=== PATIENT | female | born 1955 | race Caucasian/White ===

== ENCOUNTER 2020-11-07 08:58 | Outpatient (REF) | payer MEDICARE, SELFPAY ==
--- NOTE | 2020-11-07 | PFT_ITS ---
Forced vital capacity is normal. FEV1 at the lower limit of normal but FEV1/FVC is moderately decreased. DIL89-30 moderately decreased. MVV is slightly decreased. Post bronchodilator therapy, there is no significant change. Total lung capacity and residual volume are slightly increased. Diffusion capacity normal. CONCLUSION: Mild to moderate degree of obstructive airway disorder. There is hyperinflation. No response to bronchodilator therapy. MD NIDHI Rascon/MODL / [id number]
--- NOTE | 2020-11-07 09:02 | CT_ITS ---
EXAMINATION: CT CHEST WITHOUT CONTRAST CLINICAL INFORMATION: Pulmonary nodules. COMPARISON: 05/08/2020 TECHNIQUE: Multidetector volumetric CT imaging of the chest was done. Axial MIP volume rendering provided. Sagittal and coronal reformatted images were obtained. This CT examination was performed using dose optimization techniques as appropriate, variously including the following: *Automated exposure control *Adjustment of mA and/or kV according to patient size (this includes techniques or standardized protocols for targeted exams where dose is matched to indication/reason for exam; i.e. extremities or head) *Use of iterative reconstruction technique DLP: 102 mGy-cm FINDINGS: LUNGS AND PLEURA: Azygos fissure of the right upper lobe. The multiple small calcified and noncalcified pulmonary and/or pleural-based nodules are stable in size and number compared to 05/08/2020. The largest noncalcified nodule is a 0.5 cm smoothly marginated pleural-based focus in the posterolateral right upper lobe (image 131, series 7). No suspicious lung nodule or mass. No pleural effusion. CARDIOVASCULAR: Cardiac chambers, pulmonary arteries and thoracic aorta are normal in size. No pericardial effusion. MEDIASTINUM AND LOWER NECK: The visualized portion of the thyroid gland is normal. The esophagus is unremarkable. No mediastinal mass. LYMPHATICS: No axillary or internal mammary lymphadenopathy. No pathologic sized hilar or mediastinal lymph nodes. UPPER ABDOMEN: Unremarkable. SKELETAL AND CHEST WALL: Mild, multilevel discovertebral degenerative change of the thoracic spine. No aggressive osseous lesions within the thorax. Stable 1.1 cm lobulated nodule in the upper outer quadrant of the left breast. Please refer to the ultrasound breast report from 05/16/2020. CT/CT chest wo con IMPRESSION: The small pulmonary and pleural-based nodules remain stable in size and number compared to 05/08/2020. Note that additional chest CT imaging follow-up is not required in a low-risk patient, and may be considered optional in another 12 months in a high risk patient.
== END 2020-11-07 08:59 | disposition home or self-care (01) ==
LOC: HO.CT 08:58
PROVIDERS: Visit Provider Internal Medicine Pulmonary Disease
DX: J45.20 Mild intermittent asthma, uncomplicated (principal); R91.8 Other nonspecific abnormal finding of lung field
CPT/HCPCS: 71250; 94060; 94727; 94729

== ENCOUNTER → 2020-11-27 10:01 | Outpatient (BNVA) | payer MEDICARE, SELFPAY | PROVIDERS: PCP Internal Medicine; Visit Provider Internal Medicine Pulmonary Disease | DX: Z13.89 Encounter for screening for other disorder (principal) | CPT/HCPCS: Q3014 ==

== ENCOUNTER 2020-12-09 09:05 | Outpatient (REF) | payer MEDICARE, SELFPAY ==
[2020-12-09 11:54] LABS: Alanine Aminotransferase 17 U/L (0-31); Alkaline Phosphatase 47 U/L (39-117); Anion Gap 11 (12-20); Aspartate Amino Transferase 21 U/L (5-31); Bilirubin Total 0.8 mg/dL (0.0-1.0); Blood Urea Nitrogen 27 mg/dL (9-16); Calcium 8.3 mg/dL (8.4-10.2); Carbon Dioxide 28 mmol/L (22-29); Chloride 108 mmol/L (96-108); Cholesterol 230 mg/dL; Estimated Glomerular Filt Rate > 60; Glucose Fasting 88 mg/dL (60-99); HDL Cholesterol 61 mg/dL; LDL Cholesterol Calculated 154 mg/dl; Potassium 4.3 mmol/l (3.3-5.1); Sodium 143 mmol/L (135-145); Total Protein 6.3 g/dL (6.5-8.0); Triglycerides 75 mg/dL
[2020-12-09 12:20] LABS: Vitamin D 25-OH Total 54.7 ng/mL (>30)
== END 2020-12-09 09:06 | disposition home or self-care (01) ==
LOC: HO.HMGCLDS 09:05
PROVIDERS: PCP Internal Medicine; Visit Provider Internal Medicine
DX: E78.5 Hyperlipidemia, unspecified (principal); Z78.0 Asymptomatic menopausal state
CPT/HCPCS: 36415; 80053; 80061; 82306

== ENCOUNTER 2021-03-19 08:21 | Outpatient (REF) | payer MEDICARE, SELFPAY ==
[2021-03-19 11:51] LABS: Alanine Aminotransferase 29 U/L (0-31); Aspartate Amino Transferase 36 U/L (5-31); Calcium 9.1 mg/dL (8.4-10.2); Cholesterol 205 mg/dL; HDL Cholesterol 59 mg/dL; LDL Cholesterol Calculated 126 mg/dl; Triglycerides 101 mg/dL
[2021-03-20 10:07] LABS: Calcium, Ionized 4.8 mg/dL (4.8-5.6)
== END 2021-03-19 08:22 | disposition home or self-care (01) ==
LOC: HO.HMGCLDS 08:21
PROVIDERS: PCP Internal Medicine; Visit Provider Internal Medicine
DX: E83.51 Hypocalcemia (principal); E78.5 Hyperlipidemia, unspecified
CPT/HCPCS: 36415; 80061; 82310; 82330; 84450; 84460

== ENCOUNTER 2021-05-27 09:50 | Outpatient (REF) | payer MEDICARE, SELFPAY ==
--- NOTE | ~2021-05-27 | XR_ITS ---
EXAMINATION: XR SINUSES CLINICAL INFORMATION: Sinusitis COMPARISON: None TECHNIQUE: 3 views of the sinuses were obtained. FINDINGS: There is normal aeration of bilateral paranasal sinuses and mastoid air cells. The bony sinus villatoro are intact. No air-fluid levels seen. XR/XR sinus min 3V IMPRESSION: Unremarkable sinus exam.
== END 2021-05-27 09:51 | disposition home or self-care (01) ==
LOC: HO.XRAY 09:50
PROVIDERS: PCP Internal Medicine; Visit Provider Otolaryngology
DX: J32.9 Chronic sinusitis, unspecified (principal)
CPT/HCPCS: 70220

== ENCOUNTER 2021-06-04 07:59 | Day surgery (SDC) | payer MEDICARE, SELFPAY ==
[2021-05-28 14:39] VITALS: BMI 23.0
--- NOTE | 2021-06-03 09:35 | P.CONAN_ITS ---
Documented by User: Arely Mcmanusney 06/03/21 09:36 HPI - Anesthesia Eval Consult details Narrative: 65yo F for Colonoscopy +ETOH PMFSH Active Problems Active Problems: All Active Problems (Updated 05/28/21 @ 14:33 by Mary Daly) Mild intermittent asthma (Acute) Environmental allergies (Acute) Pulmonary nodules (Acute) Hypocalcemia (Acute) Menopause (Acute) Dyslipidemia (Acute) Recurrent cold sores (Acute) Past Medical History Medical History (Updated 05/28/21 @ 14:33 by Mary Daly) Dyslipidemia Hypocalcemia Menopause Recurrent cold sores Seasonal allergies Sinus infection Family History Family History Father Coronary artery disease Hypertension Mother Colon cancer Dyslipidemia Asthma Maternal Uncle Colon cancer Maternal Grandmother Diabetes mellitus Surgical History Surgical History (Updated 05/28/21 @ 14:08 by Mary Daly) Hx of colonoscopy S/P correction of deviated nasal septum Status post laser ablation of incompetent vein Status post right breast lumpectomy Social History Social History Alcohol intake: current Alcohol intake frequency: a few times a month Patient Tobacco Use Status: Former Tobacco user Quit Date: Are you DNR?: No Advance Directives: No Advance Directives Information Provided: No Advance Directives on File: No Meds Allergies Allergy/AdvReac Type Severity Reaction Status Date / Time ciprofloxacin [Cipro] Allergy Unknown anaphylaxis Verified 06/04/21 08:25 atorvastatin AdvReac Unknown Muscle Pain Verified 06/04/21 08:25 simvastatin AdvReac Unknown Muscle Pain Verified 06/04/21 08:25 Home Medications Medication Instructions Recorded Confirmed Last Taken Type ascorbic acid (vitamin C) 1,000 mg 1 g PO ONCE tab 12/13/20 05/28/21 Unknown History tablet biotin 5,000 mcg disintegrating 10,000 mcg PO DAILY 12/13/20 05/28/21 Unknown History tablet cholecalciferol (vitamin D3) 50 50 mcg PO DAILY 12/13/20 05/28/21 Unknown History mcg (2,000 unit) capsule coenzyme Q10 100 mg capsule 100 mg PO DAILY 12/13/20 05/28/21 Unknown History ferrous sulfate 325 mg (65 mg 325 mg PO DAILY 12/13/20 06/04/21 05/28/21 History iron) tablet flu vacc (65yr ml IM ONCE 12/13/20 03/25/21 Unknown History up)-MF59C(PF) 60 mcg(15 mcgx4)/0.5 mL IM syringe krill oil 500 mg capsule 500 mg PO DAILY 12/13/20 05/28/21 Unknown History qrwzuezl-dgrvefd-ksvh-lutein tablet 1 tab PO DAILY 12/13/20 05/28/21 Unknown History pneumococcal 23-christopher ps vaccine 25 ml IM 12/13/20 03/25/21 Unknown History mcg/0.5 mL injection syringe cetirizine [Zyrtec] 10 mg PO DAILY 05/28/21 05/28/21 Unknown History fluticasone propionate [Flonase 1 spray INTRANASAL DAILY 05/28/21 05/28/21 Unknown History Allergy Relief] fluticasone propionate [Flovent 1 puff INHALATION BID PRN 05/28/21 05/28/21 Unknown History HFA] Exam Exam Date and Time: June 03, 2021 0935 Height,Weight and Vital Signs: Height 5 ft 1 in Weight 55.338 kg Narrative Narrative: PFT 10/2020 CONCLUSION: Mild to moderate degree of obstructive airway disorder. There is hyperinflation. No response to bronchodilator therapy. Assessment and Plan Assessment Anesthesia Assessment: Chart Reviewed Documented by User: Frances Rossi 06/04/21 08:51 [facility] Past Medical History Medical History (Updated 05/28/21 @ 14:33 by Mary Daly) Dyslipidemia Hypocalcemia Menopause Recurrent cold sores Seasonal allergies Sinus infection Family History Family History Father Coronary artery disease Hypertension Mother Colon cancer Dyslipidemia Asthma Maternal Uncle Colon cancer Maternal Grandmother Diabetes mellitus Surgical History Surgical History (Updated 05/28/21 @ 14:08 by Mary Daly) Hx of colonoscopy S/P correction of deviated nasal septum Status post laser ablation of incompetent vein Status post right breast lumpectomy Social History Social History Alcohol intake: current Alcohol intake frequency: a few times a month Patient Tobacco Use Status: Former Tobacco user Quit Date: Are you DNR?: No Advance Directives: No Advance Directives Information Provided: No Advance Directives on File: No Meds Allergies Allergy/AdvReac Type Severity Reaction Status Date / Time ciprofloxacin [Cipro] Allergy Unknown anaphylaxis Verified 06/04/21 08:25 atorvastatin AdvReac Unknown Muscle Pain Verified 06/04/21 08:25 simvastatin AdvReac Unknown Muscle Pain Verified 06/04/21 08:25 Home Medications Medication Instructions Recorded Confirmed Last Taken Type ascorbic acid (vitamin C) 1,000 mg 1 g PO ONCE tab 12/13/20 05/28/21 Unknown History tablet biotin 5,000 mcg disintegrating 10,000 mcg PO DAILY 12/13/20 05/28/21 Unknown History tablet cholecalciferol (vitamin D3) 50 50 mcg PO DAILY 12/13/20 05/28/21 Unknown History mcg (2,000 unit) capsule coenzyme Q10 100 mg capsule 100 mg PO DAILY 12/13/20 05/28/21 Unknown History ferrous sulfate 325 mg (65 mg 325 mg PO DAILY 12/13/20 06/04/21 05/28/21 History iron) tablet flu vacc (65yr ml IM ONCE 12/13/20 03/25/21 Unknown History up)-MF59C(PF) 60 mcg(15 mcgx4)/0.5 mL IM syringe krill oil 500 mg capsule 500 mg PO DAILY 12/13/20 05/28/21 Unknown History cykfjnzs-hakwzss-fvfr-lutein tablet 1 tab PO DAILY 12/13/20 05/28/21 Unknown History pneumococcal 23-christopher ps vaccine 25 ml IM 12/13/20 03/25/21 Unknown History mcg/0.5 mL injection syringe cetirizine [Zyrtec] 10 mg PO DAILY 05/28/21 05/28/21 Unknown History fluticasone propionate [Flonase 1 spray INTRANASAL DAILY 05/28/21 05/28/21 Unknown History Allergy Relief] fluticasone propionate [Flovent 1 puff INHALATION BID PRN 05/28/21 05/28/21 Unknown History HFA] Exam Airway Mallampati Class: II TM Dist: >3cm Neck ROM: Full Heart: rrr Lungs: cta Assessment and Plan Assessment Anesthesia Assessment: Anesthesia Plan Discussed and Chart Reviewed Final Anesthetic Review NPO: Yes ASA Class: II Final Preanesthetic Review: No Changes in Pt Med Stat and Consent Obtained/Reviewed Patient Risk: Intermediate Procedure Risk: Intermediate Anesthetic Plan Anesthetic Plan: MAC: Disposition: Standard PACU
[2021-06-04 08:53] VITALS: BP 115/73; PULSE 66; RESP 16; TEMP 36.7; O2SAT 99
[2021-06-04] MEDS: Lactated Ringers 1,000 ML 100 ML IVCONT (09:02)
--- NOTE | 2021-06-04 10:33 | P.BOP_ITS ---
Brief Operative Note Date of Service: 06/04/21 Pre-op diagnosis: Screening Post-op diagnosis: other (Colon polyp) Procedure: Colonoscopy to the cecum and TI with bx/removal of polyp Surgeon: Guillermo Mcduffie Anesthesia: MAC Was an Singing Messenger used for this Procedure?: No Estimated blood loss (mL): 3.0 Pathology: other (A. Proximal AC polyp) Condition: stable Disposition: PACU
[2021-06-04 10:34] VITALS: BP 77/46; PULSE 56; RESP 16; TEMP 36.5; O2SAT 95
[2021-06-04 10:49] VITALS: BP 100/58; PULSE 58; RESP 17; TEMP 36.5; O2SAT 100
--- NOTE | 2021-06-04 10:53 | OP_ITS ---
SURGEON: Guillermo Mcduffie MD INDICATIONS: The patient presents for evaluation of personal history of tubular adenomas of the colon, family history of colon cancer, and colorectal cancer screening. Full consent has been obtained from her for this, including risks of bleeding and perforation. PREOPERATIVE DIAGNOSIS: POSTOPERATIVE DIAGNOSIS: PROCEDURE PERFORMED: Colonoscopy to the cecum and terminal ileum with biopsy and removal of polyp. ESTIMATED BLOOD LOSS: COMPLICATIONS: ANESTHESIA: Monitored anesthesia care. ASSISTANTS: SPECIMENS: PREOPERATIVE DIAGNOSES: Family history of colon cancer, colorectal cancer screening, personal history of tubular adenomas. POSTOPERATIVE DIAGNOSES: Family history of colon cancer, colorectal cancer screening, personal history of tubular adenomas, small colon polyp, diverticulosis, and internal hemorrhoids. DESCRIPTION OF PROCEDURE: The patient was placed in the left lateral decubitus position. The digital rectal exam revealed no abnormalities. The Olympus video pediatric colonoscope was entered into the rectum and advanced easily to the cecum. Once in the cecum, I did identify normal-appearing cecal pouch with appendiceal orifice and a normal-appearing ileocecal valve. The terminal ileum was cannulated and appeared normal. The scope was withdrawn back in the colon. The entire cecum and ileocecal valve appeared normal. The scope was slowly withdrawn assessing all mucosal surfaces carefully. Preparation was excellent. In the proximal ascending colon, was a flat approximately 4 mm polyp, which was biopsied and completely removed with cold biopsy forceps. I did not visualize any other polyps, colitis, nor angiodysplasia. There was a moderate amount of sigmoid diverticulosis. In the rectum, scope was retroflexed visualizing internal hemorrhoids, but no other pathology. The rectal mucosa appeared normal. The scope was straightened and withdrawn from the patient. She tolerated the procedure well and was returned to the recovery area in stable condition. IMPRESSION: 1. Colon polyp, status post biopsy and removal. 2. Diverticulosis. 3. Internal hemorrhoids. PLAN: The results of the biopsy will be checked. I would recommend a repeat colonoscopy in 5 years for further surveillance. She will otherwise see me on a p.r.n. basis. MD MOUNA Roberto/ANDREY / [id number]
== END 2021-06-04 11:20 | disposition home or self-care (01) ==
PROVIDERS: PCP Internal Medicine; Visit Provider Internal Medicine
PROC: 0DJD8ZZ Inspection of Lower Intestinal Tract, Via Natural or Artificial Opening Endoscopic (ICD-10-PCS; CPT 45378; principal; 2021-06-04 09:10)
DX: Z12.11 Encounter for screening for malignant neoplasm of colon (principal); Z86.010 Personal history of colon polyps; Z80.0 Family history of malignant neoplasm of digestive organs; D12.2 Benign neoplasm of ascending colon; K57.30 Diverticulosis of large intestine without perforation or abscess without bleeding; K64.8 Other hemorrhoids
CPT/HCPCS: 45380; 88305

== ENCOUNTER 2021-06-17 07:25 | Outpatient (REF) | payer MEDICARE, SELFPAY ==
[2021-06-17 11:58] LABS: Alanine Aminotransferase 37 U/L (0-31); Aspartate Amino Transferase 44 U/L (5-31); Cholesterol 199 mg/dL; HDL Cholesterol 59 mg/dL; LDL Cholesterol Calculated 122 mg/dl; Triglycerides 93 mg/dL
== END 2021-06-17 07:26 | disposition home or self-care (01) ==
LOC: HO.HMGCLDS 07:25
PROVIDERS: PCP Internal Medicine; Visit Provider Internal Medicine
DX: E78.5 Hyperlipidemia, unspecified (principal)
CPT/HCPCS: 36415; 80061; 84450; 84460

== ENCOUNTER 2021-07-18 09:52 | Outpatient (REF) | payer MEDICARE, SELFPAY ==
--- NOTE | ~2021-07-18 | MM_ITS ---
EXAMINATION: MM SCREENING DIGITAL BREAST TOMOSYNTHESIS, BILATERAL CLINICAL INFORMATION: Screening. Asymptomatic. Benign left ultrasound guided biopsy upper outer quadrant 05/21/2020 (stromal fibrosis and benign breast epithelium). The lifetime risk of breast cancer based on the Tyrer-Cuzick Model is 7%. COMPARISON: Mammography: 05/21/2020, 05/16/2020, outside mammography 05/25/2019 and 05/23/2018 ([facility]). TECHNIQUE: Digital breast tomosynthesis is performed in both the craniocaudal and mediolateral oblique views along with computer-aided detection (CAD). Synthesized 2D images are generated from the tomosynthesis. FINDINGS: There are scattered areas of fibroglandular density (ACR BI-RADS breast composition Category b). There is a stable oval mass with central biopsy clip marker mid upper outer left breast similar to prior studies. Neither breast shows interval mass or architectural abnormality or developing density. No abnormal calcifications. The axilla and skin contours are unremarkable. MM/MM tomosynthesis screening BI IMPRESSION: No mammographic evidence of malignancy. ASSESSMENT: BI-RADS 2: Benign RECOMMENDATION: Routine annual mammography screening. This patient's information was entered into a reminder system with a target due date for their next mammogram.
== END 2021-07-18 09:53 | disposition home or self-care (01) ==
LOC: HO.MAMMO 09:52
PROVIDERS: Visit Provider Internal Medicine
DX: Z12.31 Encounter for screening mammogram for malignant neoplasm of breast (principal)
CPT/HCPCS: 77063; 77067

== ENCOUNTER 2021-10-01 10:20 | Outpatient (REF) | payer MEDICARE, SELFPAY ==
[2021-10-01 12:12] LABS: Alanine Aminotransferase 24 U/L (0-31); Aspartate Amino Transferase 24 U/L (5-31); Cholesterol 267 mg/dL; HDL Cholesterol 56 mg/dL; LDL Cholesterol Calculated 186 mg/dl; Triglycerides 125 mg/dL
[2021-10-01 12:33] LABS: Vitamin D 25-OH Total 39.7 ng/mL (>30)
== END 2021-10-01 10:21 | disposition home or self-care (01) ==
LOC: HO.HMGCLDS 10:20
PROVIDERS: PCP Internal Medicine; Visit Provider Internal Medicine
DX: E78.5 Hyperlipidemia, unspecified (principal); Z78.0 Asymptomatic menopausal state
CPT/HCPCS: 36415; 80061; 82306; 84450; 84460

== ENCOUNTER 2021-10-17 15:02 | Outpatient (REF) | payer MEDICARE, SELFPAY ==
--- NOTE | ~2021-10-17 | CT_ITS ---
EXAMINATION: CT CHEST WITHOUT CONTRAST CLINICAL INFORMATION: Pulmonary nodules COMPARISON: Previous chest x-ray most recent April [address] October 2020 TECHNIQUE: Multidetector volumetric CT imaging of the chest was done. Axial MIP volume rendering provided. Sagittal and coronal reformatted images were obtained. This CT examination was performed using dose optimization techniques as appropriate, variously including the following: *Automated exposure control *Adjustment of mA and/or kV according to patient size (this includes techniques or standardized protocols for targeted exams where dose is matched to indication/reason for exam; i.e. extremities or head) *Use of iterative reconstruction technique DLP: 195 mGy-cm FINDINGS: PHOTOVOLTAIC PANEL INSTALLER: LUNGS: There is an azygos lobe. The small calcified and noncalcified pulmonary nodules are stable. Largest noncalcified pulmonary nodule is a 5 mm peripheral or subpleural right upper lobe nodule axial image 126 series 5. Largest calcified pulmonary nodule is a 5 mm left lower lobe nodule axial image 258 series 5. No new pulmonary nodule is seen. MEDIASTINUM: There is mild coronary artery calcification. The mediastinum is otherwise normal. PLEURA: There is no pleural effusion. No pleural mass or thickening. AXILLA: No enlarged axillary lymph nodes. Stable 1 cm nodule in the upper outer quadrant of the left breast. No other chest wall mass. UPPER ABDOMEN: Unremarkable. OSSEOUS STRUCTURES: Mild degenerative changes of the spine. CT/CT chest wo con IMPRESSION: Stable small calcified and noncalcified pulmonary nodules. Fleischner guidelines were followed.
== END 2021-10-17 15:03 | disposition home or self-care (01) ==
LOC: HO.CT 15:02
PROVIDERS: Visit Provider Internal Medicine Pulmonary Disease
DX: R91.8 Other nonspecific abnormal finding of lung field (principal)
CPT/HCPCS: 71250

== ENCOUNTER → 2021-11-13 10:43 | Outpatient (BNVA) | payer MEDICARE, SELFPAY | PROVIDERS: PCP Internal Medicine; Visit Provider Internal Medicine Pulmonary Disease | DX: J45.20 Mild intermittent asthma, uncomplicated (principal); R91.8 Other nonspecific abnormal finding of lung field | CPT/HCPCS: 99212 ==

== ENCOUNTER 2021-11-19 08:00 | Outpatient (RCR) | payer MEDICARE, SELFPAY ==
--- NOTE | 2021-11-12 16:56 | MHC.PT.EP ---
[facility] [place] Office [place] Office [place] Office [address] [phone] F: [phone] F: [phone] F: [phone] F: [phone] Physical Therapy Plan of Care Date of Evaluation: Date of Surgery: Diagnosis: L knee tendonitis Assessment: Pt in a 66 y/o female referred to PT for eval and treat of L knee patellar tendonitis resulting in decreased tolerance for biking, hiking, walking for duration, negotiating stairs and disturbed sleep secondary to decreased L knee and B hip strength, increased quad and hamstring tissue tension, l knee hyacinth patellar mild swelling, and pain. Pt is deemed an appropriate candidate to receive skilled PT in order to address her physical limitations to improve her functional ability. Frequency and Duration: The patient will be seen 2 x / wk x 5 wks. Short Term Goals: initiate HEP. improve baseline pain with activitiy to < 3/10. initial: 6/10. [facility] Goals: I with HEP. Improve L knee extension MMT to > 4/5, initial 4-/5. Improve B hip abd MMT by at least 1/2 grade; initial: 4/5 B. Pt will report no longer painful on long walks. Treatment Plan: Modalities to reduce pain, spasms and effusion. Manual therapy to restore motion and function. Therapeutic exercise to improve strength and flexibility. Neuromuscular re-education for posture and balance. Therapeutic activities to return to functional activities of daily living. Electronically signed by: Ramos Menchaca PT. Please sign and return to therapist. Thank you for your referral.
--- NOTE | 2022-03-27 10:49 | MHC.PT.DC ---
[facility] [place] Office [place] Office [place] Office [address] Barrios [address] [facility] [phone] F: [phone] F: [phone] F: [phone] F: [phone] Physical Therapy Discharge Report Diagnosis: L knee tendonitis Date of Surgery: Date of Evaluation: 11/12/21 Date of Discharge: 03/27/22 Treatments to Date: 4 Cancellations to Date: 3 No Shows to Date: Discharge Status: Improved Function Independent with HEP Patient Elected to Stop Discharge Summary: Janeth had been an active participant in her therapy and had made good progress towards her goals achieving some of her goals in this time before she elected to stop therapy and cancel her apts. She is I with a basic home program. Electronically signed by: Ramos Menchaca PT. Please sign and return to therapist. Thank you for your referral.
== END 2022-03-27 10:49 | disposition home or self-care (01) ==
LOC: HO.PTCHIC 08:00
PROVIDERS: PCP Internal Medicine; Visit Provider Internal Medicine
DX: M76.892 Other specified enthesopathies of left lower limb, excluding foot (principal)
CPT/HCPCS: 97033; 97110; 97140; 97161

== ENCOUNTER → 2021-12-02 08:06 | Outpatient (BNVA) | payer MEDICARE, SELFPAY | PROVIDERS: PCP Internal Medicine; Visit Provider Advanced Practice Midwife ==

== ENCOUNTER 2022-02-20 07:28 | Outpatient (REF) | payer MEDICARE, SELFPAY ==
[2022-02-20 12:16] LABS: Vitamin D 25-OH Total 34.9 ng/mL (>30)
[2022-02-20 12:31] LABS: Alanine Aminotransferase 21 U/L (0-31); Aspartate Amino Transferase 17 U/L (5-31); Cholesterol 202 mg/dL; HDL Cholesterol 47 mg/dL; LDL Cholesterol Calculated 116 mg/dl; Triglycerides 195 mg/dL
== END 2022-02-20 07:29 | disposition home or self-care (01) ==
LOC: HO.HMGCLDS 07:28
PROVIDERS: Visit Provider Internal Medicine
DX: E78.5 Hyperlipidemia, unspecified (principal); Z78.0 Asymptomatic menopausal state
CPT/HCPCS: 36415; 80061; 82306; 82550; 84450; 84460

== ENCOUNTER 2022-05-04 10:00 | Outpatient (RCR) | payer MEDICARE, SELFPAY ==
[2022-05-01 13:53] VITALS: BP 122/78; PULSE 49; O2SAT 97
--- NOTE | 2022-06-08 17:42 | MHC.PT.DC ---
[facility] [place] Office [place] Office [place] Office [address] David Barrios [address] [phone] F: [phone] F: [phone] F: [phone] F: [phone] Physical Therapy Discharge Report Diagnosis: This is a 66-year-old female here today with a script for vertigo. Date of Surgery: Date of Evaluation: 05/01/22 Date of Discharge: 06/08/22 Treatments to Date: 2 Cancellations to Date: 0 No Shows to Date: Discharge Status: Achieved Goals Improved Function Independent with HEP Patient Elected to Stop Discharge Summary: Patient was negative in all 6 canals. She demos normal scores on balance work. She was educated on anatomy of inner ears, tx techniques and calling our office if symptoms return. Chart was DC'd after 30 days. Electronically signed by: Angelina Cheng PT Please sign and return to therapist. Thank you for your referral.
== END 2022-06-08 17:42 | disposition home or self-care (01) ==
LOC: HO.PTCHIC 10:00
PROVIDERS: Visit Provider Otolaryngology
DX: R42 Dizziness and giddiness (principal)
CPT/HCPCS: 95992; 97112; 97162

== ENCOUNTER 2022-07-23 14:11 | Outpatient (REF) | payer MEDICARE, SELFPAY ==
--- NOTE | ~2022-07-23 | MM_ITS ---
EXAMINATION: BONE DENSITOMETRY CLINICAL INDICATION: Asymptomatic menopausal state. COMPARISON: None (current study represents initial baseline exam). TECHNIQUE: Using a [employer] DXA System (software version: 13.1) manufactured by [employer], dual-energy x-ray absorptiometry was performed of the lumbar spine and left hip. The images are of good technical quality. Summary results are attached. FINDINGS: AP SPINE L1-L4: BMD 1.087 g/cm2, Z-score 0.9, T-score -0.8, normal. LEFT FEMUR, NECK: BMD 0.892 g/cm2, Z-score 0.6, T-score -1.1, osteopenia. LEFT FEMUR, TOTAL: BMD 0.953 g/cm2, Z-score 1.0, T-score -0.4, normal. IDENTIFIED RISK FACTORS: Low calcium intake, family history (parental hip fracture), history of fracture (adult), menopause. HISTORY OF FRACTURE: Wrist. MEDICATIONS: Calcium supplements or multivitamin, vitamin D. MM/XR DEXA axial skeleton IMPRESSION: 1. DIAGNOSIS: Osteopenia based on the lowest T-score value of -1.1 in the femoral neck applying World Health Organization criteria. 2. 10-YEAR FRACTURE RISK PREDICTION, FRAX: Major osteoporotic fracture (clinical spine, forearm, hip or shoulder) 3.3%. Hip fracture 0.4%. 3. Treatment Recommendations: NOF guidelines recommend consideration for treatment in postmenopausal women and men age 50 and older presenting with the following: -A hip or vertebral (clinical or morphometric) fracture. -T-score less than or equal to -2.5 at the femoral neck or spine after appropriate evaluation to exclude secondary causes. -Low bone mass at the hip or spine and a 10-year fracture probability by FRAX of greater than or equal to 3% for hip fracture or greater than or equal to 20% for major osteoporotic fracture based on the [place] adapted WHO algorithm. 4. Other Recommendations: All treatment decisions require clinical judgment and consideration of individual patient factors, including patient preferences, comorbidities, previous drug use, risk factors not captured in the FRAX model (e.g. frailty, falls, vitamin D deficiency, increased bone turnover, interval significant decline in bone density) and possible under or overestimation of fracture risk by FRAX. Additional medical evaluation for secondary cause of low bone mineral density may be appropriate. FUTURE SCAN RECOMMENDATION: People with diagnosed cases of osteoporosis or at high risk for fracture should have regular bone mineral density tests. For patients eligible for Medicare, routine testing is allowed once every 2 years. The testing frequency can be increased to one year for patients who have rapidly progressing disease, those who are receiving or discontinuing medical therapy to restore bone mass, or have additional risk factors.
--- NOTE | ~2022-07-23 | MM_ITS ---
EXAMINATION: MM SCREENING DIGITAL BREAST TOMOSYNTHESIS, BILATERAL CLINICAL INFORMATION: Screening. Asymptomatic. The lifetime risk of breast cancer based on the Tyrer-Cuzick Model is 7.2%. COMPARISON: Mammography: July 18, 2021 and studies dating back to May 19, 2017 TECHNIQUE: Digital breast tomosynthesis is performed in both the craniocaudal and mediolateral oblique views along with computer-aided detection (CAD). Synthesized 2D images are generated from the tomosynthesis. FINDINGS: There are scattered areas of fibroglandular density (ACR BI-RADS breast composition Category b). There are no significant masses, abnormal calcifications, or other abnormalities. MM/MM tomosynthesis screening BI IMPRESSION: No significant changes from prior exam. ASSESSMENT: BI-RADS 1: Negative RECOMMENDATION: Routine annual mammography screening. This patient's information was entered into a reminder system with a target due date for their next mammogram.
== END 2022-07-23 14:12 | disposition home or self-care (01) ==
LOC: HO.MAMMO 14:11
PROVIDERS: PCP Internal Medicine; Visit Provider Internal Medicine
DX: Z12.31 Encounter for screening mammogram for malignant neoplasm of breast (principal); Z13.820 Encounter for screening for osteoporosis; Z78.0 Asymptomatic menopausal state
CPT/HCPCS: 77063; 77067; 77080

== ENCOUNTER 2022-08-14 08:49 | Outpatient (REF) | payer MEDICARE, SELFPAY ==
[2022-08-14 11:54] LABS: Alanine Aminotransferase 18 U/L (0-31); Aspartate Amino Transferase 23 U/L (5-31); Cholesterol 179 mg/dL; HDL Cholesterol 40 mg/dL; LDL Cholesterol Calculated 117 mg/dl; Triglycerides 113 mg/dL
== END 2022-08-14 08:50 | disposition home or self-care (01) ==
LOC: HO.HMGCLDS 08:49
PROVIDERS: PCP Internal Medicine; Visit Provider Internal Medicine
DX: E78.5 Hyperlipidemia, unspecified (principal)
CPT/HCPCS: 36415; 80061; 84450; 84460

== ENCOUNTER 2023-02-15 08:30 | Outpatient (REF) | payer MEDICARE, SELFPAY ==
[2023-02-15 12:54] LABS: Alanine Aminotransferase 18 U/L (0-31); Aspartate Amino Transferase 23 U/L (5-31); Cholesterol 200 mg/dL; HDL Cholesterol 53 mg/dL; LDL Cholesterol Calculated 120 mg/dl; Triglycerides 136 mg/dL; Vitamin D 25-OH Total 33.3 ng/mL (>30)
== END 2023-02-15 08:31 | disposition home or self-care (01) ==
LOC: HO.HMGCLDS 08:30
PROVIDERS: PCP Internal Medicine; Visit Provider Internal Medicine
DX: E78.5 Hyperlipidemia, unspecified (principal); M85.852 Other specified disorders of bone density and structure, left thigh; Z78.0 Asymptomatic menopausal state
CPT/HCPCS: 36415; 80061; 82306; 84450; 84460

== ENCOUNTER 2023-07-26 07:39 | Outpatient (REF) | payer MEDICARE, SELFPAY ==
--- NOTE | ~2023-07-26 | MM_ITS ---
EXAMINATION: MM SCREENING DIGITAL BREAST TOMOSYNTHESIS, BILATERAL CLINICAL INFORMATION: Screening. Asymptomatic. Benign left ultrasound guided biopsy upper outer quadrant 05/21/2020 (stromal fibrosis and benign breast epithelium). COMPARISON: Mammography: 07/23/2022, 07/18/2021, 05/21/2020, 05/16/2020, and dating back to 2017. TECHNIQUE: Digital breast tomosynthesis is performed in both the craniocaudal and mediolateral oblique views along with computer-aided detection (CAD). Synthesized 2D images are generated from the tomosynthesis. FINDINGS: There are scattered areas of fibroglandular density (ACR BI-RADS breast composition Category b). Oval mass in the mid upper outer left breast with central biopsy clip is unchanged from prior exams and benign. Otherwise, there are no suspicious masses, suspicious grouped calcifications, or areas of architectural distortion in either breast. The parenchymal pattern is stable from prior exams. MM/MM tomosynthesis screening BI IMPRESSION: No mammographic evidence of malignancy. Stable benign findings ASSESSMENT: BI-RADS BI-RADS 2 - Benign Findings RECOMMENDATION: Routine annual mammography screening. 1 year F/U This examination should not preclude the clinical evaluation of a suspicious palpable abnormality. This patient's information was entered into a reminder system with a target due date for their next mammogram.
== END 2023-07-26 07:40 | disposition home or self-care (01) ==
LOC: HO.MAMMO 07:39
PROVIDERS: PCP Internal Medicine; Visit Provider Internal Medicine
DX: Z12.31 Encounter for screening mammogram for malignant neoplasm of breast (principal)
CPT/HCPCS: 77063; 77067

== ENCOUNTER → 2023-07-26 07:45 | Outpatient (BNV) | payer MEDICARE, SELFPAY | PROVIDERS: PCP Internal Medicine; Visit Provider Radiology Diagnostic Radiology | DX: Z12.31 Encounter for screening mammogram for malignant neoplasm of breast (principal) | CPT/HCPCS: 77063; 77067 ==

== ENCOUNTER 2023-08-19 07:23 | Outpatient (REF) | payer MEDICARE, SELFPAY ==
[2023-08-19 12:21] LABS: Alanine Aminotransferase 15 U/L (0-31); Aspartate Amino Transferase 22 U/L (5-31); Cholesterol 175 mg/dL (<200); Glucose Fasting 81 mg/dL (60-99); HDL Cholesterol 51 mg/dL (>40); LDL Cholesterol Calculated 106 mg/dL (<100); Triglycerides 90 mg/dL (<150); Vitamin D 25-OH Total 65.8 ng/mL (>30)
== END 2023-08-19 07:24 | disposition home or self-care (01) ==
LOC: HO.HMGCLDS 07:23
PROVIDERS: PCP Internal Medicine; Visit Provider Internal Medicine
DX: E78.5 Hyperlipidemia, unspecified (principal); M85.852 Other specified disorders of bone density and structure, left thigh; Z78.0 Asymptomatic menopausal state
CPT/HCPCS: 36415; 80061; 82306; 82947; 84450; 84460

== ENCOUNTER 2023-08-23 11:26 | Outpatient (AMB) | payer MEDICARE, SELFPAY ==
[2023-08-23 12:04] VITALS: BP 120/76; PULSE 60; O2SAT 99; BMI 25.3
--- NOTE | 2023-08-23 12:04 | A.OFFPC_ITS ---
<Statement entered by Debbi Sarmiento MD - 04/04/25 15:21> This note has been administratively?closed. Vital Signs 08/23/23 12:04 Height 5 ft 1 in Weight 134 lb BMI 25.3 BP 120/76 Blood Pressure Location Lt brachial Position Sitting Pulse 60 Pulse Source Pulse Oximeter Pulse Oximetry (%) 99 Oxygen Delivery Method Room Air Intake Visit Reasons: 6 month f/u labs Intake Note: patient is here today for 6 month f/u Allergies ciprofloxacin [Cipro] Allergy (Unknown, Verified 08/23/23 12:16) anaphylaxis atorvastatin Adverse Reaction (Unknown, Verified 08/23/23 12:16) Muscle Pain simvastatin Adverse Reaction (Unknown, Verified 08/23/23 12:16) Muscle Pain Medication List - Last Reconciled 08/23/23 by Debbi Sarmiento MD biotin 10,000 mcg PO DAILY calcium carb,lactat-vitamin D3 200 mg-6.25 mcg (250 unit) 1 tab PO DAILY cholecalciferol (vitamin D3) 50 mcg PO DAILY coenzyme Q10 100 mg PO DAILY fluticasone propionate 50 mcg/actuation (Flonase Allergy Relief) 1 spray intranasal DAILY krill oil mg PO zrrbqfqn-cbiypef-tcfw-lutein 1 tab PO DAILY rosuvastatin 5 mg PO DAILY Tobacco use date assessed: 08/23/23 Fall risk assessment: No Falls in past year Last assessed Fall Risk: 08/23/23 Dental Screening Dental Screen Date: 08/23/23 Did you have a dental visit in the last 12 months?: Yes Did you have a dental problem in the last 6 months where you did not have access to dental care?: No Was dental information given to patient?: Patient has dentist HPI 6 month f/u labs HPI Details 67-year-old lady here today for follow-u p on her lipids, had recent fasting labs done which showed results within normal limits, currently taking rosuvastatin 5 mg daily, with no complaints of muscle pain or rash with taking the medication. PFSH Medical History Osteopenia of left femoral neck Cataract Positional lightheadedness Seasonal allergies Menopause Dyslipidemia Recurrent cold sores Surgical History Hx of colonoscopy Status post laser ablation of incompetent vein Status post right breast lumpectomy S/P correction of deviated nasal septum Family History Father Coronary artery disease Hypertension Mother Dyslipidemia Asthma Maternal Uncle Colon cancer Maternal Grandmother Diabetes mellitus Daughter Mental health disorder Paternal Aunt History of breast cancer Paternal Grandmother History of breast cancer Social History Housing: House Alcohol intake: current Alcohol intake frequency: a few times a month Patient Tobacco Use Status: Former Tobacco user Quit Date: e-Cigarette/Vaping Use: Never Used service: No Current occupational status: retired Cognitive needs: No Hearing needs: No Vision needs: No Questionnaire Thrive Questionnaire Date Thrive assessed: 02/22/23 AUDIT C Alcohol Use Questionnaire (AUDIT-C) 1. How often do you have a drink containing alcohol?: Monthly or less 2. How many drinks containing alcohol do you have on a typical day when you are drinking?: 1 or 2 Total Score: 1 MELIA-7 AMB Questionnaire MELIA-7 Date MELIA - 7 assessed: 02/22/23 Source: Developed by Drs. Guillermo Hair, Valorie Lazcano, Bandar Guerra and colleagues, with an educational nita from [employer]. Physical exam (Primary Care) Vital Signs: Last Vital Signs Pulse 60 08/23/23 12:04 BP 120/76 08/23/23 12:04 Pulse Ox 99 08/23/23 12:04 Oxygen Delivery Method Room Air 08/23/23 12:04 BMI result Body Mass Index 25.3 Tobacco/Smoking Status: Tobacco use Status Tobacco use date assessed 08/23/23 08/23/23 12:11 Patient Tobacco Use Status Former Tobacco user 08/23/23 12:11 e-Cigarette/Vaping Use Never Used 08/23/23 12:11 Thrive Assessment: Date of Thrive Assessment Date Thrive assessed 02/22/23 08/23/23 12:11 Results Reviewed Results Reviewed: ENTERED: 08/19/23-[address]: ORDERED: Glu Fasting, AST, ALT, Lipid Panel, Vitamin D 25-OH Test Result Flag Reference Site FBS 81 60-99 mg/dL AST (GOT) 22 5-31 U/L ALT (GPT) 15 0-31 U/L Triglyceride 90 <150 mg/dL Desirable Triglyceride: less than 150 mg/dL Borderline High Triglyceride 150-199 mg/dL High Triglyceride: 200-499 mg/dL Very High Triglyceride: greater than or equal to 5OO mg/dL Cholesterol 175 <200 mg/dL Desirable Cholesterol: less than 200 mg/dL Borderline High Cholesterol: 200-239 mg/dL High Cholesterol: greater than 239 mg/dL LDL Calculated 106 H <100 mg/dL Desirable LDL: less than 100 mg/dL Near Optimal/Above Optimal LDL: 110-129 mg/dL Borderline High LDL: 130-159 mg/dL High LDL: 160-189 mg/dL Very High LDL: greater than or equal to 190 mg/dL HDL 51 >40 mg/dL Desirable HDL: greater than 40 mg/dL Note: This HDL assay may give artificially low results in patients with liver disease. Vit D 25-OH Tot 65.8 >30 ng/mL Health Based Reference Values* < 20 ng/mL Deficient 20-30 ng/mL Insufficient > 30 ng/mL Sufficient Assessment and Plan Assessment & Plan (1) Dyslipidemia: Code(s): E78.5 - Hyperlipidemia, unspecified Orders: Orders Lipid Panel 6 Months E78.5 - Hyperlipidemia, unspecified, M85.852 - Other specified disorders of bone density and structure, left thigh, Z78.0 - Asymptomatic menopausal state Aspartate Amino Transferase 6 Months E78.5 - Hyperlipidemia, unspecified, M85.852 - Other specified disorders of bone density and structure, left thigh, Z78.0 - Asymptomatic menopausal state Alanine Aminotransferase 6 Months E78.5 - Hyperlipidemia, unspecified, M85.852 - Other specified disorders of bone density and structure, left thigh, Z78.0 - Asymptomatic menopausal state Vitamin D 25-OH Total 6 Months E78.5 - Hyperlipidemia, unspecified, M85.852 - Other specified disorders of bone density and structure, left thigh, Z78.0 - Asymptomatic menopausal state Coding Level of Care Code Est Pt Level 3 (33564) Diagnoses Dyslipidemia E78.5
== END 2023-08-23 12:40 | disposition home or self-care (01) ==
PROVIDERS: Visit Provider Internal Medicine
DX: E78.5 Hyperlipidemia, unspecified (principal)
CPT/HCPCS: 99499

== ENCOUNTER 2023-11-08 12:10 | Outpatient (REF) | payer MEDICARE, SELFPAY ==
--- NOTE | ~2023-11-08 | XR_ITS ---
EXAMINATION: XR BILATERAL STANDING KNEES WITH 2 ADDITIONAL VIEWS LEFT KNEE CLINICAL INFORMATION: Knee pain. COMPARISON: None available. TECHNIQUE: Standing view both knees with 2 additional views left knee. FINDINGS: There are mild degenerative changes present bilaterally with narrowing of the medial compartments, left greater than right. Some mild lateral femoral condyle osteophytes seen on the left. Some tibial plateau osteophytes are seen medially on the left. No chondrocalcinosis. No significant joint effusion is seen. No fractures. XR/XR knee LT 2V IMPRESSION: Mild degenerative changes predominantly involving the medial compartments, left greater than right.
--- NOTE | ~2023-11-08 | XR_ITS ---
EXAMINATION: XR BILATERAL STANDING KNEES WITH 2 ADDITIONAL VIEWS LEFT KNEE CLINICAL INFORMATION: Knee pain. COMPARISON: None available. TECHNIQUE: Standing view both knees with 2 additional views left knee. FINDINGS: There are mild degenerative changes present bilaterally with narrowing of the medial compartments, left greater than right. Some mild lateral femoral condyle osteophytes seen on the left. Some tibial plateau osteophytes are seen medially on the left. No chondrocalcinosis. No significant joint effusion is seen. No fractures. XR/XR knee standing BI IMPRESSION: Mild degenerative changes predominantly involving the medial compartments, left greater than right.
== END 2023-11-08 12:11 | disposition home or self-care (01) ==
LOC: HO.HOSX 12:10
PROVIDERS: Visit Provider Orthopaedic Surgery
DX: M17.12 Unilateral primary osteoarthritis, left knee (principal)
CPT/HCPCS: 73560; 73565; 99202

== ENCOUNTER 2023-11-08 12:23 | Outpatient (AMB) | payer MEDICARE, SELFPAY ==
--- NOTE | 2023-11-08 12:24 | A.OFFVIS_ITS ---
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 Patient reports that she has intermittent pain, particularly when hiking and going up and down stairs. She also notices a small lump on the lateral aspect of the left knee. She expresses concern for ligament injury. 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 She reports intermittent pain in her knee with activity, particularly when hiking or using stairs. She also says she has a soft lump on her knee, which she is concerned about. She has pain of when she does hiking or dancing but mostly after these activities. She knows swelling and occasional sharpness medial-sided pain. She is very active and exercises daily 6 PFSH Medical History Osteopenia of left femoral neck Cataract Positional lightheadedness Seasonal allergies Menopause Dyslipidemia Recurrent cold sores Surgical History Hx of colonoscopy Status post laser ablation of incompetent vein Status post right breast lumpectomy S/P correction of deviated nasal septum Family History Father Coronary artery disease Hypertension Mother Dyslipidemia Asthma Maternal Uncle Colon cancer Maternal Grandmother Diabetes mellitus Daughter Mental health disorder Paternal Aunt History of breast cancer Paternal Grandmother History of breast cancer Social History Housing: House Alcohol intake: current Alcohol intake frequency: a few times a month Patient Tobacco Use Status: Former Tobacco user Quit Date: e-Cigarette/Vaping Use: Never Used service: No Current occupational status: retired Cognitive needs: No Hearing needs: No Vision needs: No Review of Systems Const All systems reviewed & are unremarkable except as noted in HPI and below Physical Exam Vital Signs: BMI result Body Mass Index 25.3 Const General: no acute distress, alert and awake Orientation/consciousness: patient oriented x3 HEENT Head: Yes normocephalic and Yes atraumatic Eyes EOM: EOMs intact bilaterally Resp Effort & Inspection: normal respiratory effort and able to speak in complete sentences Cardio Jugular venous distension: no JVD Skin General skin exam: turgor normal Rashes: no rashes Neuro General: patient oriented x3 Extrem Other: Left knee with mild effusion. Fullness posteriorly. Tenderness to palpation medial lateral joint line. Mild varus alignment. Psych Appearance: grossly normal Affect: normal affect Attitude: cooperative Results Reviewed Results Reviewed: I personally reviewed relevant radiographs Moderate left knee OA Assessment & Plan Assessment & Plan (1) Osteoarthritis of left knee: Code(s): M17.12 - Unilateral primary osteoarthritis, left knee Plan: Left OA. Discussed treatment, diagnosis and natural history. Recommend NSAIDs exercises and injections should her pain worsen. She will let me know. Plan Scribed for Italo Vaughan MD by Hans Puri, medical screener, on 11/08/23 at 12:45 PM, EST. Orders: Orders XR knee standing BI Today M25.569 - Pain in unspecified knee XR knee LT 2V Today M25.569 - Pain in unspecified knee Coding Level of Care Code New Pt Level 3 (78335) Diagnoses Osteoarthritis of left knee M17.12
[2023-11-08 12:43] VITALS: BMI 25.3
== END 2023-11-08 14:34 | disposition home or self-care (01) ==
PROVIDERS: PCP Internal Medicine; Visit Provider Orthopaedic Surgery
DX: M17.12 Unilateral primary osteoarthritis, left knee (principal)
CPT/HCPCS: 99203

== ENCOUNTER 2023-12-07 07:45 | Outpatient (AMB) | payer MEDICARE, SELFPAY ==
--- NOTE | 2023-12-07 07:52 | A.OFFVIS_ITS ---
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 She is doing well with concerns: Occasional leakage of urine. Attempting to eat a healthy diet with calcium and vitamin D and stays active with exercise. Currently sexually active. Denies any vaginal dryness or irritation. Last pap smear; 2016. Last mammogram; NDD. [facility] Medical History Osteopenia of left femoral neck Cataract Positional lightheadedness Seasonal allergies Menopause Dyslipidemia Recurrent cold sores Surgical History Hx of colonoscopy Status post laser ablation of incompetent vein Status post right breast lumpectomy S/P correction of deviated nasal septum Family History Father Coronary artery disease Hypertension Mother Dyslipidemia Asthma Maternal Uncle Colon cancer Maternal Grandmother Diabetes mellitus Daughter Mental health disorder Paternal Aunt History of breast cancer Paternal Grandmother History of breast cancer Social History Housing: House Alcohol intake: current Alcohol intake frequency: a few times a month Patient Tobacco Use Status: Former Tobacco user Quit Date: e-Cigarette/Vaping Use: Never Used service: No Current occupational status: retired Cognitive needs: No Hearing needs: No Vision needs: No Female Reproductive History Menstrual Age of Menarche: 10 Duration of menses: 3-5 days control method: none Total pregnancies: 2 Full term: 2 History of abnormal pap smear: No History of abnormal mammogram: No Review of Systems Const All systems reviewed & are unremarkable except as noted in HPI and below Reports as per HPI Eyes Reports no additional complaints ENT Reports no additional complaints Card Reports no additional complaints Resp Reports no additional complaints GI Reports as per HPI and Reports no additional complaints Reports as per HPI Musc Reports no additional complaints Skin/Breast Reports as per HPI Neuro Reports no additional complaints Psych Reports no additional complaints Endo Reports no additional complaints Tom/Lymph Reports no additional complaints Aller/Immun Reports no additional complaints Physical Exam Vital Signs: Last Vital Signs BP 128/78 12/07/23 07:53 BMI result Body Mass Index 26.4 Const General: cooperative, healthy appearing, no acute distress, well developed and alert Orientation/consciousness: patient oriented x3 HEENT Head: Yes normal to inspection Eyes General: appearance normal, both eyes and all related structures Neck Neck: Yes normal visual inspection Thyroid: Thyroid normal Chest Chest palpation & inspection: normal inspection of the chest and other (no puckering, dimpling, peau de orange, retraction, discharge, masses) Breast/axilla inspection: normal inspection of the breasts Breast/axilla palpation: normal palpation of the breasts Resp Effort & Inspection: normal respiratory effort GI Inspection: Yes normal to inspection Palpation (GI): Soft to palpation Rectal Exam - Female: deferred Other: small curuncle General: Yes bladder normal to palpation External Female Exam: normal external appearance and normal appearance of the urethra Speculum Exam - Vagina: normal appearance of the vagina, normal palpation, normal vaginal discharge and vagina atrophic Speculum Exam - Cervix: normal appearance of the cervix and normal palpation Bimanual exam- vagina & uterus: normal bimanual exam, normal palpation, uterine size normal, bladder normal to palpation, normal palpation and non-tender Bimanual Exam- Adnexa, other: no masses Skin General skin exam: no rashes or lesions noted Rashes: no rashes Neuro General: patient oriented x3 Cognition (Neuro): normal cognition Extrem General: Yes normal to inspection Psych Attitude: cooperative Thought process: Normal thought process present Assessment & Plan Assessment & Plan (1) Encounter for well woman exam with routine gynecological exam: Code(s): Z01.419 - Encounter for gynecological examination (general) (routine) without abnormal findings Plan: Discussed: Current recommendations for pap smears per ASCCP guidelines. Breast awareness, periodic self breast exams and yearly mammogram. Maintain a healthy lifestyle, well balanced diet including Calcium 1,200 mg and Vitamin D 800 IU daily, and routine exercise. Contact the office with any postmenopausal bleeding. Kegel's and abdominal core toning. All of her questions and concerns were addressed to the best of my ability. This note is constructed using voice recognition software. While every effort has been made to ensure accuracy, warehouse record clerk errors may have been included. 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 Coding Level of Care Code Est Pt Prev Care >65y(74814) Diagnoses Encounter for well woman exam with routine gynecological exam Z01.419
[2023-12-07 07:53] VITALS: BP 128/78; BMI 26.4
== END 2023-12-07 08:23 | disposition home or self-care (01) ==
PROVIDERS: PCP Internal Medicine; Visit Provider Advanced Practice Midwife
DX: Z01.419 Encounter for gynecological examination (general) (routine) without abnormal findings (principal)
CPT/HCPCS: G0101

== ENCOUNTER 2023-12-07 07:45 | Outpatient (REF) | payer MEDICARE, SELFPAY ==
[2023-12-11 06:50] LABS: HPV mRNA E6/E7 rflx Not Detected (Not Detected)
== END 2023-12-07 07:46 | disposition home or self-care (01) ==
LOC: HO.LAB 07:45
PROVIDERS: PCP Internal Medicine; Visit Provider Advanced Practice Midwife
DX: Z01.419 Encounter for gynecological examination (general) (routine) without abnormal findings (principal); Z11.51 Encounter for screening for human papillomavirus (HPV)
CPT/HCPCS: 87624; 88142; G0101

== ENCOUNTER 2024-01-20 07:00 | Outpatient (RCR) | payer MEDICARE, SELFPAY ==
--- NOTE | 2023-12-09 08:05 | MHC.PT.EP ---
[facility] [place] Office [place] [facility] [place] Office [address] [phone] F: [phone] F: [phone] F: [phone] F: [phone] Physical Therapy Plan of Care Date of Evaluation: 12/09/23 Date of Surgery: Diagnosis: OA of L knee Assessment: Patient is a 68 year old L handed female who presents with s/s consistent with L knee OA, pain. She does not work but does like staying active and hiking weekly. Patient past medical history includes osteopenia and cataracts. Current impairments include pain, flexibility, gait mechanics, strength, activity tolerance and functional mobility . Functional limitations include decreased ability to walk, stand, hike, squat, kneel, and negotiate stairs. Patient is motivated with good rehab potential. Skilled PT will address impairments and functional limitations in order to achieve goals. Frequency and Duration: The patient will be seen 2x/week for 5 weeks Short Term Goals: I with HEP - 2 weeks quad flex normal - 3 weeks Fdc Goals: Trendelenberg absent - 5 weeks hip and knee strength 4+/5 grossly on L - 5 weeks Pain free hiking and walking, stair negotiation - 5 weeks Treatment Plan: Modalities to reduce pain, spasms and effusion. Manual therapy to restore motion and function. Therapeutic exercise to improve strength and flexibility. Neuromuscular re-education for posture and balance. Therapeutic activities to return to functional activities of daily living. Electronically signed by: Kev Rodriguez, PT Please sign and return to therapist. Thank you for your referral.
--- NOTE | 2024-08-10 10:45 | MHC.PT.DC ---
[facility] [place] [facility] [place] [facility] [place] [facility] [address] David Barrios [address] [phone] F: [phone] F: [phone] F: [phone] F: [phone] Physical Therapy Discharge Report Diagnosis: OA of L knee Date of Surgery: Date of Evaluation: 12/09/23 Date of Discharge: 02/12/24 Treatments to Date: 5 Cancellations to Date: No Shows to Date: Discharge Status: Achieved Goals Independent with HEP Discharge Summary: 01/20/24: All goals met. Impairments absent. Functional limitations absent. 80/80 LEFS. Pt appropriate to d/c to HEP at this time. 01/07/24: significant reduction in s/s since start of PT. min discomfort with dancing and hiking. we will have 1 more appt in 2 weeks then discern d/c vs more. 12/31/23: pt progressing well with skilled Pt. reduced pain overall and able to walk and be more active with less s/s. we will continue to progress as tolerated. dancing tonight, will report back about s/s. 12/23/23: pt has been progressing well but still can get sore with some activities in post/lat L knee. continue to progress as tolerated and address manually. 12/17/23: pt progressing well with skilled PT. added stretching and hip strength. added to HEP as well. continue to progress as tolerated. Patient is a 68 year old L handed female who presents with s/s consistent with L knee OA, pain. She does not work but does like staying active and hiking weekly. Patient past medical history includes osteopenia and cataracts. Current impairments include pain, flexibility, gait mechanics, strength, activity tolerance and functional mobility . Functional limitations include decreased ability to walk, stand, hike, squat, kneel, and negotiate stairs. Patient is motivated with good rehab potential. Skilled PT will address impairments and functional limitations in order to achieve goals. Electronically signed by: Kev Rodriguez, PT Please sign and return to therapist. Thank you for your referral.
== END 2024-08-10 10:45 | disposition home or self-care (01) ==
LOC: HO.PTCHIC 07:00
PROVIDERS: PCP Internal Medicine; Visit Provider Orthopaedic Surgery
DX: M17.12 Unilateral primary osteoarthritis, left knee (principal)
CPT/HCPCS: 97110; 97140; 97162

== ENCOUNTER 2024-02-18 06:38 | Outpatient (REF) | payer MEDICARE, SELFPAY ==
[2024-02-18 11:00] LABS: Alanine Aminotransferase 16 U/L (0-31); Aspartate Amino Transferase 21 U/L (5-31); Cholesterol 153 mg/dL (<200); HDL Cholesterol 51 mg/dL (>40); LDL Cholesterol Calculated 85 mg/dL (<100); Triglycerides 85 mg/dL (<150)
[2024-02-18 11:18] LABS: Vitamin D 25-OH Total 55.9 ng/mL (>30)
== END 2024-02-18 06:39 | disposition home or self-care (01) ==
LOC: HO.HMGCLDS 06:38
PROVIDERS: PCP Internal Medicine; Visit Provider Internal Medicine
DX: M85.852 Other specified disorders of bone density and structure, left thigh (principal); E78.5 Hyperlipidemia, unspecified; Z78.0 Asymptomatic menopausal state
CPT/HCPCS: 36415; 80061; 82306; 84450; 84460

== ENCOUNTER 2024-02-23 08:31 | Outpatient (AMB) | payer MEDICARE, SELFPAY ==
[2024-02-23 08:40] VITALS: BP 102/64; PULSE 54; O2SAT 99; BMI 24.9
--- NOTE | 2024-02-23 08:40 | MHC.PC.OV ---
Vital Signs 02/23/24 08:40 Height 5 ft 1 in Weight 132 lb BMI 24.9 BP 102/64 Blood Pressure Location Rt brachial Position Sitting Pulse 54 Pulse Source Pulse Oximeter Pulse Oximetry (%) 99 Oxygen Delivery Method Room Air Intake Visit Reasons: Annual Intake Note: Pt is here today for her PE: Lasdt mammogram 07/26/23, bone density scan 07/23/23, colonoscopy 06/04/21 Allergies ciprofloxacin [Cipro] Allergy (Unknown, Verified 12/07/23 07:54) anaphylaxis atorvastatin Adverse Reaction (Unknown, Verified 12/07/23 07:54) Muscle Pain simvastatin Adverse Reaction (Unknown, Verified 12/07/23 07:54) Muscle Pain Tobacco use date assessed: 02/23/24 Fall risk assessment: No Falls in past year Last assessed Fall Risk: 02/23/24 Dental Screening Dental Screen Date: 02/23/24 Did you have a dental visit in the last 12 months?: Yes Did you have a dental problem in the last 6 months where you did not have access to dental care?: Yes Was dental information given to patient?: Patient has dentist HPI HPI Comments History of Present Illness Details 68-year-old lady with hyperlipidemia, currently on Co Q10 and Krill oil as well as rosuvastatin 5 mg daily, here today for follow-up. She has been compliant with healthy eating habits has been exercising, had physical therapy on her knees which improved her range of motion and relieved her knee pain. Has been walking at least 3-5 miles daily for exercise and has been doing some hiking with no knee pain experienced during these activities. Has lost about 10 lb since last visit, and recent fasting labs showed improvement in her LDL cholesterol, with lipids now within normal limits. She has presence of osteopenia left femoral neck, as seen on bone density scan done in 2021, due for repeat. [facility] Medical History Osteopenia of left femoral neck Cataract Positional lightheadedness Seasonal allergies Menopause Dyslipidemia Recurrent cold sores Surgical History Hx of colonoscopy Status post laser ablation of incompetent vein Status post right breast lumpectomy S/P correction of deviated nasal septum Family History Father Coronary artery disease Hypertension Mother Dyslipidemia Asthma Maternal Uncle Colon cancer Maternal Grandmother Diabetes mellitus Daughter Mental health disorder Paternal Aunt History of breast cancer Paternal Grandmother History of breast cancer Social History Housing: House Alcohol intake: current Alcohol intake frequency: a few times a month Patient Tobacco Use Status: Former Tobacco user Quit Date: e-Cigarette/Vaping Use: Never Used service: No Current occupational status: retired Cognitive needs: No Hearing needs: No Vision needs: No Female Reproductive History Menstrual Age of Menarche: 10 Questionnaire PHQ-9 Over the last 2 weeks, how often have you been bothered by any of the following problems? 1. Little interest or pleasure in doing things: not at all 2. Feeling down, depressed, or hopeless: not at all 3. Trouble falling or staying asleep, or sleeping too much: not at all 4. Feeling tired or having little energy: not at all 5. Poor appetite or overeating: not at all 6. Feeling bad about yourself - or that you are a failure or have let yourself or your family down: not at all 7. Trouble concentrating on things, such as reading the newspaper or watching television: not at all 8. Moving or speaking so slowly that other people could have noticed. Or the opposite - being so fidgety or restless that you have been moving around a lot more than usual: not at all 9. Thoughts that you would be better off or of hurting yourself in some way: not at all Total score: 0 Depression Screening Interpretation: Negative Depression Screening Done: Yes 02660 - PHQ-9 Billing: Yes Source: Developed by Drs. Guillermo Hair, Valorie Lazcano, Bandar Guerra and colleagues, with an educational nita from [employer]. Thrive Questionnaire Date Thrive assessed: 02/23/24 I am a: Patient What is your living situation today?: I have a steady place to live Within the past 12 months, did the food you bought not last and you didn't have the money to get more?: Never true Within the past 12 months, did you worry whether your food would run out before you got money to buy more?: Never true Do you have trouble paying for medicines?: No Do you have trouble getting transportation to medical appointments?: No Do you have trouble paying your heating and electricity bill?: No Do you have trouble taking care of your child, family member or friend?: No Do you have trouble with day-to-day activities such as bathing, preparing meals, shopping, managing finances, etc.?: No Are you currently unemployed and looking for a job?: No Are you interested in more education?: No THRIVE Score: 0 AUDIT C Alcohol Use Questionnaire (AUDIT-C) 1. How often do you have a drink containing alcohol?: 2-3 times a week 2. How many drinks containing alcohol do you have on a typical day when you are drinking?: 1 or 2 3. How often do you have six or more drinks on one occasion?: Never Total Score: 3 MELIA-7 AMB Questionnaire MELIA-7 Date MELIA - 7 assessed: 02/23/24 Feeling nervous, anxious, or on edge: 0 = Not at all Not being able to stop or control worryin = Not at all Worrying too much about different things: 0 = Not at all Trouble relaxin = Not at all Being so restless that it is hard to sit still: 0 = Not at all Becoming easily annoyed or irritable: 0 = Not at all Feeling afraid as if something awful might happen: 0 = Not at all Total MELIA-7 score (0-4 normal; 5-9 mild; 10-14 moderate; 15-21 severe): 0 Source: Developed by Drs. Guillermo Hair, Valorie Lazcano, Bandar Guerra and colleagues, with an educational nita from [employer]. MELIA-7 Assessment Billing MELIA-7 Assessment Tool: MELIA-7 Assessment 84991 Review of Systems Const Reports as per HPI Eyes Reports no additional complaints ENT Reports no additional complaints Card Reports no additional complaints Resp Reports no additional complaints GI Reports as per HPI and Reports no additional complaints Reports as per HPI Musc Reports no additional complaints Skin/Breast Reports as per HPI Neuro Reports no additional complaints Psych Reports no additional complaints Endo Reports no additional complaints Tom/Lymph Reports no additional complaints Aller/Immun Reports no additional complaints Physical exam (Primary Care) Vital Signs: Last Vital Signs Pulse 54 02/23/24 08:40 BP 102/64 02/23/24 08:40 Pulse Ox 99 02/23/24 08:40 Oxygen Delivery Method Room Air 02/23/24 08:40 BMI result Body Mass Index 24.9 Tobacco/Smoking Status: Tobacco use Status Tobacco use date assessed 02/23/24 02/23/24 08:45 Patient Tobacco Use Status Former Tobacco user 02/23/24 08:45 e-Cigarette/Vaping Use Never Used 02/23/24 08:45 Depression Screening Interpretation: Negative Thrive Assessment: Date of Thrive Assessment Date Thrive assessed 02/22/23 02/23/24 08:45 Const Other: Alert oriented x3, no acute distress noted ambulatory with normal gait Orientation/consciousness: patient oriented x3 HENMT Mouth: moist mucous membranes Eyes General: appearance normal, both eyes and all related structures Neck Neck: Yes full ROM, Yes no lymphadenopathy and Yes supple Resp Auscultation: clear to auscultation bilaterally Cardio Other: S1-S2 present regular rate and rhythm General: Yes no CVA tenderness Back/Spine/Pelvis Back: no CVA tenderness and No back tenderness Neuro General: patient oriented x3, gait normal, moves all extremities, Normal light touch and pain sensation, no focal motor deficits and CN's II-XI intact bilaterally Extrem General: Yes full ROM, Yes no joint enlargement, Yes no clubbing, cyanosis or edema, Yes no pedal edema and Yes normal gait Results Reviewed Results Reviewed: Name: Janeth Xie Age/Sex: 68/F : 1955 Unit#: [id number] Attend Dr: Debbi Sarmiento MD Re02/18/24 Status: DEP REF Location: [facility] Disch: SPEC : [id number] [place]IB[place]: 02/18/24 STATUS: COMP REQ : [id number] RECD: 02/18/24-[address]: Debbi Sarmiento MD COMP: 02/18/24 ENTERED: 02/18/24-[address]: ORDERED: AST, ALT, Lipid Panel, Vitamin D 25-OH Test Result Flag Reference AST (GOT) 21 5-31 U/L ALT (GPT) 16 0-31 U/L Triglyceride 85 <150 mg/dL Desirable Triglyceride: less than 150 mg/dL Borderline High Triglyceride 150-199 mg/dL High Triglyceride: 200-499 mg/dL Very High Triglyceride: greater than or equal to 5OO mg/dL Cholesterol 153 <200 mg/dL Desirable Cholesterol: less than 200 mg/dL Borderline High Cholesterol: 200-239 mg/dL High Cholesterol: greater than 239 mg/dL LDL Calculated 85 <100 mg/dL Desirable LDL: less than 100 mg/dL Near Optimal/Above Optimal LDL: 110-129 mg/dL Borderline High LDL: 130-159 mg/dL High LDL: 160-189 mg/dL Very High LDL: greater than or equal to 190 mg/dL HDL 51 >40 mg/dL Desirable HDL: greater than 40 mg/dL Note: This HDL assay may give artificially low results in patients with liver disease. Vit D 25-OH Tot 55.9 >30 ng/mL Health Based Reference Values* < 20 ng/mL Deficient 20-30 ng/mL Insufficient > 30 ng/mL Sufficient Assessment and Plan Assessment & Plan (1) Osteopenia of left femoral neck: Code(s): M85.852 - Other specified disorders of bone density and structure, left thigh Plan: Continue regular weight-bearing exercise taking vitamin-D 3 supplements and taking adequate calcium from dietary sources, ordered another bone density scan to be done together with her screening mammogram in June 2024 (2) Dyslipidemia: Code(s): E78.5 - Hyperlipidemia, unspecified Plan: Reviewed recent fasting lipid profile with patient with levels within normal . Continue with rosuvastatin 5 mg daily, Krill oil supplement , in addition to adherence to low-cholesterol diet and regular exercise, at least 30 minutes 3 to 4 times a week. Advised patient to make healthy food choices, eat more fruits, vegetables, whole grains, wild caught fish and low-fat dairy. Limit amount of meat and fried or fatty food products, as well as processed foods and fast foods. Follow-up scheduled with repeat fasting lipid panel in 6 months. (3) Environmental allergies: Code(s): Z91.09 - Other allergy status, other than to drugs and biological substances Plan: She is followed by Dr. Solano (4) Osteoarthritis of left knee: Code(s): M17.12 - Unilateral primary osteoarthritis, left knee Qualifiers: Osteoarthritis type: primary Qualified Code(s): M17.12 - Unilateral primary osteoarthritis, left knee Plan: Joint pain has resolved wuth physical therapy and weight loss. Continue with regular exercise and maintain ideal body weight Orders: Orders XR DEXA axial skeleton Today M85.852 - Other specified disorders of bone density and structure, left thigh, Z78.0 - Asymptomatic menopausal state Alanine Aminotransferase 07/30/24 E78.5 - Hyperlipidemia, unspecified, M85.852 - Other specified disorders of bone density and structure, left thigh, Z78.0 - Asymptomatic menopausal state Aspartate Amino Transferase 07/30/24 E78.5 - Hyperlipidemia, unspecified, M85.852 - Other specified disorders of bone density and structure, left thigh, Z78.0 - Asymptomatic menopausal state Vitamin D 25-OH Total 07/30/24 E78.5 - Hyperlipidemia, unspecified, M85.852 - Other specified disorders of bone density and structure, left thigh, Z78.0 - Asymptomatic menopausal state Lipid Panel 07/30/24 E78.5 - Hyperlipidemia, unspecified, M85.852 - Other specified disorders of bone density and structure, left thigh, Z78.0 - Asymptomatic menopausal state Coding Level of Care Code Est Pt Level 4 (22235) Diagnoses Osteopenia of left femoral neck M85.852 Dyslipidemia E78.5 Environmental allergies Z91.09 Primary osteoarthritis of left knee M17.12 Osteoarthritis type: primary Additional Codes MELIA-7 Assessment Billing - MELIA-7 Assessment Tool: MELIA-7 Assessment 27512 ([id number])
== END 2024-02-23 09:40 | disposition home or self-care (01) ==
PROVIDERS: PCP Internal Medicine; Visit Provider Internal Medicine
DX: M85.852 Other specified disorders of bone density and structure, left thigh (principal); E78.5 Hyperlipidemia, unspecified; Z91.09 Other allergy status, other than to drugs and biological substances; M17.12 Unilateral primary osteoarthritis, left knee
CPT/HCPCS: 99214

== ENCOUNTER 2024-03-08 10:35 | Outpatient (AMB) | payer MEDICARE, SELFPAY ==
--- NOTE | 2024-03-08 10:39 | MHC.OFFVIS ---
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 Last mammogram June 2023 BI-RADS 2. She denies any breast concerns, lumpectomy years ago was benign per pt. 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 PFS Medical History Osteopenia of left femoral neck Cataract Positional lightheadedness Seasonal allergies Menopause Dyslipidemia Recurrent cold sores Surgical History (Updated 03/08/24 @ 11:19 by Sumaya Hernandez CNM) Hx of colonoscopy Status post laser ablation of incompetent vein Status post right breast lumpectomy S/P correction of deviated nasal septum Family History Father Coronary artery disease Hypertension Mother Dyslipidemia Asthma Maternal Uncle Colon cancer Maternal Grandmother Diabetes mellitus Daughter Mental health disorder Paternal Aunt History of breast cancer Paternal Grandmother History of breast cancer Social History Housing: House Alcohol intake: current Alcohol intake frequency: a few times a month Patient Tobacco Use Status: Former Tobacco user Quit Date: e-Cigarette/Vaping Use: Never Used service: No Current occupational status: retired Cognitive needs: No Hearing needs: No Vision needs: No Female Reproductive History Menstrual Age of Menarche: 10 Review of Systems Const All systems reviewed & are unremarkable except as noted in HPI and below Endo Reports no additional complaints Physical Exam Vital Signs: Last Vital Signs BP 110/70 03/08/24 10:40 BMI result Body Mass Index 24.9 Const General: cooperative, healthy appearing and no acute distress Psych Appearance: well kempt Attitude: cooperative Thought process: Normal thought process present Assessment & Plan Assessment & Plan (1) Vaginal atrophy: Code(s): N95.2 - Postmenopausal atrophic vaginitis (2) Urge incontinence: Code(s): N39.41 - Urge incontinence Plan Discussed: Treatment for option for vaginal atrophy, urge incontinence, consider topical estrogen. Risks benefits reviewed, including breast cancer risks. Use, and application, precautions reviewed. Option of trial of physical therapy- for pelvic floor strengthening, referral placed. Follow up in 6-8 weeks for in-person checkup. All of her questions and concerns were addressed to the best of my ability and shared decision making. She is agreeable to the plan of care. This note is constructed using voice recognition software. While every effort has been made to ensure accuracy, allergy specialist errors may have been included. Orders: Referrals Pelvic Repairer Kiln Car Referral N39.41 - Urge incontinence, N95.2 - Postmenopausal atrophic vaginitis Medications: New estradiol 0.01%(0.1mg/gram) (Estrace) use nightly for two weeks, then twice a week 1 g vaginal 2XW 42.5 grams 1RF Coding Level of Care Code Est Pt Level 3 (31849) Diagnoses Vaginal atrophy N95.2 Urge incontinence N39.41
[2024-03-08 10:40] VITALS: BP 110/70; BMI 24.9
== END 2024-03-08 11:13 | disposition home or self-care (01) ==
LOC: HO.HWS 10:35
PROVIDERS: PCP Internal Medicine; Visit Provider Advanced Practice Midwife
DX: N95.2 Postmenopausal atrophic vaginitis (principal); N39.41 Urge incontinence
CPT/HCPCS: 99213

== ENCOUNTER → 2024-03-08 10:35 | Outpatient (BNVA) | payer MEDICARE, SELFPAY | PROVIDERS: PCP Internal Medicine; Visit Provider Advanced Practice Midwife | DX: N95.2 Postmenopausal atrophic vaginitis (principal); N39.41 Urge incontinence; M85.852 Other specified disorders of bone density and structure, left thigh; E78.5 Hyperlipidemia, unspecified; Z78.0 Asymptomatic menopausal state | CPT/HCPCS: 99212 ==

== ENCOUNTER 2024-05-02 08:24 | Outpatient (AMB) | payer MEDICARE, SELFPAY ==
--- NOTE | 2024-05-02 08:34 | A.OFFVIS_ITS ---
Vital Signs 05/02/24 08:36 Height 5 ft 1 in Weight 135 lb BMI 25.5 BP 112/72 Intake Visit Reasons: 6-8 weeks follow up Octave Board Racker Required: No Allergies ciprofloxacin [Cipro] Allergy (Unknown, Verified 05/02/24 08:36) anaphylaxis atorvastatin Adverse Reaction (Unknown, Verified 05/02/24 08:36) Muscle Pain simvastatin Adverse Reaction (Unknown, Verified 05/02/24 08:36) Muscle Pain Is last menstrual period known: No Post menopausal: Yes Patient : No HPI Comments Details: Patient is here for a follow up on her Estrace cream, now using it twice a week relatively new to using it unsure if it is helping yet occasionally your itching, no odors. She reports her sister was recently diagnosed with breast cancer, BRCA negative and she was reluctant to start the medicine overall. Also having some urge incontinence is interested in having a referral to pelvic floor PT. [facility] Medical History Osteopenia of left femoral neck Cataract Positional lightheadedness Seasonal allergies Menopause Dyslipidemia Recurrent cold sores Surgical History Hx of colonoscopy Status post laser ablation of incompetent vein Status post right breast lumpectomy S/P correction of deviated nasal septum Family History Father Coronary artery disease Hypertension Mother Dyslipidemia Asthma Maternal Uncle Colon cancer Maternal Grandmother Diabetes mellitus Daughter Mental health disorder Paternal Aunt History of breast cancer Paternal Grandmother History of breast cancer Sister History of breast cancer Social History Housing: House Alcohol intake: current Alcohol intake frequency: a few times a month Patient Tobacco Use Status: Former Tobacco user e-Cigarette/Vaping Use: Never Used service: No Current occupational status: retired Cognitive needs: No Hearing needs: No Vision needs: No Female Reproductive History Menstrual Age of Menarche: 10 control method: none Review of Systems Const All systems reviewed & are unremarkable except as noted in HPI and below Physical Exam Vital Signs: Last Vital Signs BP 112/72 05/02/24 08:36 BMI result Body Mass Index 25.5 Const General: cooperative, healthy appearing and no acute distress Orientation/consciousness: patient oriented x3 GI Inspection: Yes normal to inspection Palpation (GI): Soft to palpation and Other GI palpation findings present (Nontender) Rectal Exam - Female: visual inspection normal General: Yes bladder normal to palpation External Female Exam: normal appearance of the urethra Speculum Exam - Vagina: normal appearance of the vagina, normal palpation and normal vaginal discharge Speculum Exam - Cervix: normal appearance of the cervix and normal palpation Bimanual exam- vagina & uterus: normal bimanual exam, normal palpation, uterine size normal, bladder normal to palpation, normal palpation, uterine shape normal and non-tender Bimanual Exam- Adnexa, other: normal adnexae Neuro General: patient oriented x3 Assessment & Plan Assessment & Plan (1) Urge incontinence of urine: Code(s): N39.41 - Urge incontinence (2) Vaginal atrophy: Code(s): N95.2 - Postmenopausal atrophic vaginitis Plan Some improvement noted in the vaginal atrophy, discussed- continue with using medication twice a week. Self-breast exam and yearly mammogram screenings, risk and benefit of topical Estrace, and when to call for any concerns. Plan referral for pelvic floor PT for strength training and biofeedback. All of her questions and concerns were addressed to the best of my ability and shared decis ion making. She is agreeable to the plan of care. Has annual scheduled for 12/18/2024. Advised to call and come in if there is any concerns sooner. This note is constructed using voice recognition software. While every effort has been made to ensure accuracy, shop tailor errors may have been included. Orders: Referrals Pelvic Retail Property Manager Referral N39.41 - Urge incontinence Medications: Refilled estradiol 0.01%(0.1mg/gram) use 1 GM vaginally nightly x2 weeks, then twice a week 1 g vaginal 2XW 42.5 grams 1RF Coding Level of Care Code Est Pt Level 3 (45159) Diagnoses Urge incontinence of urine N39.41 Vaginal atrophy N95.2
[2024-05-02 08:36] VITALS: BP 112/72; BMI 25.5
== END 2024-05-02 08:55 | disposition home or self-care (01) ==
LOC: HO.HWS 08:24
PROVIDERS: PCP Internal Medicine; Visit Provider Advanced Practice Midwife
DX: N39.41 Urge incontinence (principal); N95.2 Postmenopausal atrophic vaginitis
CPT/HCPCS: 99213

== ENCOUNTER → 2024-05-02 08:24 | Outpatient (BNVA) | payer MEDICARE, SELFPAY | PROVIDERS: PCP Internal Medicine; Visit Provider Advanced Practice Midwife | DX: N39.41 Urge incontinence (principal); N95.2 Postmenopausal atrophic vaginitis | CPT/HCPCS: 99212 ==

== ENCOUNTER 2024-07-28 07:34 | Outpatient (REF) | payer MEDICARE, SELFPAY ==
--- NOTE | ~2024-07-28 | MM_ITS ---
EXAMINATION: MM SCREENING DIGITAL BREAST TOMOSYNTHESIS, BILATERAL CLINICAL INFORMATION: Screening. Asymptomatic. COMPARISON: Mammography: Comparison is made with available priors TECHNIQUE: Digital breast tomosynthesis is performed in both the craniocaudal and mediolateral oblique views along with computer-aided detection (CAD). Synthesized 2D images are generated from the tomosynthesis. FINDINGS: There are scattered areas of fibroglandular density (ACR BI-RADS breast composition Category b). Oval mass in the upper-outer breast with internal biopsy clip from previous needle core biopsy is stable. There are no significant masses, abnormal calcifications, or other abnormalities. MM/MM tomosynthesis screening BI IMPRESSION: No mammographic evidence of malignancy. ASSESSMENT: BI-RADS BI-RADS 2 - Benign Findings RECOMMENDATION: Routine annual mammography screening. 1 year F/U This examination should not preclude the clinical evaluation of a suspicious palpable abnormality. This patient's information was entered into a reminder system with a target due date for their next mammogram. Electronically signed by: Karen Petty DO 08/18/2024 10:02 PM EDT
--- NOTE | ~2024-07-28 | MM_ITS ---
EXAMINATION: BONE DENSITOMETRY CLINICAL INDICATION: Osteopenia. COMPARISON: Baseline BD dated 07/23/2022. TECHNIQUE: Using a [employer] DXA System (software version: 13.1) manufactured by [employer], dual-energy x-ray absorptiometry was performed of the lumbar spine and left hip. The images are of good technical quality. Summary results are attached. FINDINGS: LEFT FEMUR, NECK: Current: BMD 0.880 g/cm2, Z-score 0.7, T-score -1.1, osteopenia. Baseline: BMD 0.892 g/cm2. LEFT FEMUR, TOTAL: Current: BMD 0.963 g/cm2, Z-score 1.2, T-score -0.4, normal, 1.0% increase from baseline (<5% change is not significant). Baseline: BMD 0.953 g/cm2. AP SPINE L1-L4: Current: BMD 1.050 g/cm2, Z-score 0.7, T-score -1.1, osteopenia, 3.4% decrease from baseline (<5% change is not significant). Baseline: BMD 1.087 g/cm2. IDENTIFIED RISK FACTORS: Menopause, history of fracture (adult), family history (parent hip fracture). HISTORY OF FRACTURE: Wrist. MEDICATIONS: Multivitamin, vitamin D. MM/XR DEXA axial skeleton IMPRESSION: 1. DIAGNOSIS: Osteopenia based on the lowest T-score value of -1.1 in the lumbar spine and femur neck applying World Health Organization criteria. 2. 10-YEAR FRACTURE RISK PREDICTION, FRAX: Major osteoporotic fracture (clinical spine, forearm, hip or shoulder) 22.4%. Hip fracture 4.0%. 3. Treatment Recommendations: NOF guidelines recommend consideration for treatment in postmenopausal women and men age 50 and older presenting with the following: -A hip or vertebral (clinical or morphometric) fracture. -T-score less than or equal to -2.5 at the femoral neck or spine after appropriate evaluation to exclude secondary causes. -Low bone mass at the hip or spine and a 10-year fracture probability by FRAX of greater than or equal to 3% for hip fracture or greater than or equal to 20% for major osteoporotic fracture based on the [place] adapted WHO algorithm. 4. Other Recommendations: All treatment decisions require clinical judgment and consideration of individual patient factors, including patient preferences, comorbidities, previous drug use, risk factors not captured in the FRAX model (e.g. frailty, falls, vitamin D deficiency, increased bone turnover, interval significant decline in bone density) and possible under or overestimation of fracture risk by FRAX. Additional medical evaluation for secondary cause of low bone mineral density may be appropriate. FUTURE SCAN RECOMMENDATION: People with diagnosed cases of osteoporosis or at high risk for fracture should have regular bone mineral density tests. For patients eligible for Medicare, routine testing is allowed once every 2 years. The testing frequency can be increased to one year for patients who have rapidly progressing disease, those who are receiving or discontinuing medical therapy to restore bone mass, or have additional risk factors. Electronically signed by: Cooper Morrell MD 08/01/2024 11:16 AM EDT RP
== END 2024-07-28 07:35 | disposition home or self-care (01) ==
LOC: HO.MAMMO 07:34
PROVIDERS: PCP Internal Medicine; Visit Provider Internal Medicine
DX: Z12.31 Encounter for screening mammogram for malignant neoplasm of breast (principal); Z13.820 Encounter for screening for osteoporosis; Z78.0 Asymptomatic menopausal state; M85.852 Other specified disorders of bone density and structure, left thigh
CPT/HCPCS: 77063; 77067; 77080

== ENCOUNTER → 2024-07-28 07:45 | Outpatient (BNV) | payer MEDICARE, SELFPAY | PROVIDERS: PCP Internal Medicine; Visit Provider Internal Medicine | DX: Z12.31 Encounter for screening mammogram for malignant neoplasm of breast (principal) | CPT/HCPCS: 77063; 77067 ==

== ENCOUNTER 2024-08-21 07:13 | Outpatient (REF) | payer MEDICARE, SELFPAY ==
[2024-08-21 11:32] LABS: Alanine Aminotransferase 17 U/L (0-31); Aspartate Amino Transferase 24 U/L (5-31); Cholesterol 195 mg/dL (<200); HDL Cholesterol 46 mg/dL (>40); LDL Cholesterol Calculated 121 mg/dL (<100); Triglycerides 142 mg/dL (<150)
[2024-08-21 11:52] LABS: Vitamin D 25-OH Total 55.5 ng/mL (>30)
== END 2024-08-21 07:14 | disposition home or self-care (01) ==
LOC: HO.HMGCLDS 07:13
PROVIDERS: PCP Internal Medicine; Visit Provider Internal Medicine
DX: M85.852 Other specified disorders of bone density and structure, left thigh (principal); Z78.0 Asymptomatic menopausal state; E78.5 Hyperlipidemia, unspecified
CPT/HCPCS: 36415; 80061; 82306; 84450; 84460

== ENCOUNTER 2024-08-22 08:00 | Outpatient (RCR) | payer MEDICARE, SELFPAY | END 2024-09-18 14:25 | disposition home or self-care (01) | LOC: HO.PT 08:00 | PROVIDERS: PCP Internal Medicine; Visit Provider Advanced Practice Midwife | DX: N39.41 Urge incontinence (principal); N95.2 Postmenopausal atrophic vaginitis | CPT/HCPCS: 97110; 97112; 97161; 97530 ==

== ENCOUNTER 2024-08-23 10:44 | Outpatient (AMB) | payer MEDICARE, SELFPAY ==
--- NOTE | 2024-08-23 11:03 | MHC.PC.OV ---
Vital Signs 08/23/24 11:04 Height 5 ft 1 in Weight 139 lb BMI 26.3 BP 110/82 Blood Pressure Location Lt brachial Position Sitting Pulse 61 Pulse Source Pulse Oximeter Pulse Oximetry (%) 96 Oxygen Delivery Method Room Air Intake Visit Reasons: 6 month follow up Intake Note: Pt is here today for her 6 mo. f/u Allergies ciprofloxacin [Cipro] Allergy (Unknown, Verified 08/23/24 11:41) anaphylaxis atorvastatin Adverse Reaction (Unknown, Verified 08/23/24 11:41) Muscle Pain simvastatin Adverse Reaction (Unknown, Verified 08/23/24 11:41) Muscle Pain Medication List - Last Reconciled 08/23/24 by Debbi Sarmiento MD biotin 10,000 mcg PO DAILY calcium carb,lactat-vitamin D3 200 mg-6.25 mcg (250 unit) 1 tab PO DAILY cholecalciferol (vitamin D3) 25 mcg PO DAILY coenzyme Q10 100 mg PO DAILY estradiol 0.01%(0.1mg/gram) 1 g vaginal 2XW fluticasone propionate 50 mcg/actuation (Flonase Allergy Relief) 1 spray intranasal DAILY krill oil mg PO magnesium 250 mg PO DAILY avvscojv-wzauevo-stjs-lutein 1 tab PO DAILY rosuvastatin 5 mg PO DAILY vitamin E (dl, acetate) 180 mg PO DAILY Tobacco use date assessed: 08/23/24 Fall risk assessment: No Falls in past year Last assessed Fall Risk: 08/23/24 Dental Screening Dental Screen Date: 08/23/24 Did you have a dental visit in the last 12 months?: Yes Did you have a dental problem in the last 6 months where you did not have access to dental care?: Yes Was dental information given to patient?: Patient has dentist HPI 6 month follow up HPI Details 68-year-old lady here for follow-up on her lipids. Currently on rosuvastatin 5 mg daily and Krill oil. Recent fasting labs showed higher LDL cholesterol as compared to last check. Has been feeling well otherwise, but admits to not being as active, not getting any regular exercise this past summer. [facility] Medical History Osteopenia of left femoral neck Cataract Positional lightheadedness Seasonal allergies Menopause Dyslipidemia Recurrent cold sores Surgical History Hx of colonoscopy Status post laser ablation of incompetent vein Status post right breast lumpectomy S/P correction of deviated nasal septum Family History Father Coronary artery disease Hypertension Mother Dyslipidemia Asthma Maternal Uncle Colon cancer Maternal Grandmother Diabetes mellitus Daughter Mental health disorder Paternal Aunt History of breast cancer Paternal Grandmother History of breast cancer Sister History of breast cancer Social History Housing: House Alcohol intake: current Alcohol intake frequency: a few times a month Patient Tobacco Use Status: Former Tobacco user e-Cigarette/Vaping Use: Never Used service: No Current occupational status: retired Cognitive needs: No Hearing needs: No Vision needs: No Female Reproductive History Menstrual Age of Menarche: 10 Questionnaire PHQ-9 Over the last 2 weeks, how often have you been bothered by any of the following problems? 1. Little interest or pleasure in doing things: not at all 2. Feeling down, depressed, or hopeless: not at all 3. Trouble falling or staying asleep, or sleeping too much: not at all 4. Feeling tired or having little energy: not at all 5. Poor appetite or overeating: not at all 6. Feeling bad about yourself - or that you are a failure or have let yourself or your family down: not at all 7. Trouble concentrating on things, such as reading the newspaper or watching television: not at all 8. Moving or speaking so slowly that other people could have noticed. Or the opposite - being so fidgety or restless that you have been moving around a lot more than usual: not at all 9. Thoughts that you would be better off or of hurting yourself in some way: not at all Total score: 0 Depression Screening Interpretation: Negative Depression Screening Done: Yes 60555 - PHQ-9 Billing: Yes Source: Developed by Drs. Guillermo Hair, Valorie Lazcano, Bandar Guerra and colleagues, with an educational nita from [employer]. Thrive Questionnaire Date Thrive assessed: 08/23/24 I am a: Patient What is your living situation today?: I have a steady place to live Within the past 12 months, did the food you bought not last and you didn't have the money to get more?: Never true Within the past 12 months, did you worry whether your food would run out before you got money to buy more?: Never true Do you have trouble paying for medicines?: No Do you have trouble getting transportation to medical appointments?: No Do you have trouble paying your heating and electricity bill?: No Do you have trouble taking care of your child, family member or friend?: No Do you have trouble with day-to-day activities such as bathing, preparing meals, shopping, managing finances, etc.?: No Are you interested in more education?: No Please select the resources that you would like help with: None Currently or been in a relationship where the following occur: I choose not to answer THRIVE Score: 0 AUDIT C Alcohol Use Questionnaire (AUDIT-C) 1. How often do you have a drink containing alcohol?: 2-3 times a week 2. How many drinks containing alcohol do you have on a typical day when you are drinking?: 1 or 2 3. How often do you have six or more drinks on one occasion?: Never Total Score: 3 MELIA-7 AMB Questionnaire MELIA-7 Date MELIA - 7 assessed: 08/23/24 Feeling nervous, anxious, or on edge: 0 = Not at all Not being able to stop or control worryin = Not at all Worrying too much about different things: 0 = Not at all Trouble relaxin = Not at all Being so restless that it is hard to sit still: 0 = Not at all Becoming easily annoyed or irritable: 1 = Several days Feeling afraid as if something awful might happen: 0 = Not at all Total MELIA-7 score (0-4 normal; 5-9 mild; 10-14 moderate; 15-21 severe): 1 Source: Developed by Drs. Guillermo Hair, Valorie Lazcano, Bandar Guerra and colleagues, with an educational nita from [employer]. MELIA-7 Assessment Billing MELIA-7 Assessment Tool: MELIA-7 Assessment 29574 Review of Systems Const All systems reviewed & are unremarkable except as noted in HPI and below Physical exam (Primary Care) Vital Signs: Last Vital Signs Pulse 61 08/23/24 11:04 BP 110/82 08/23/24 11:04 Pulse Ox 96 08/23/24 11:04 Oxygen Delivery Method Room Air 08/23/24 11:04 BMI result Body Mass Index 26.3 Tobacco/Smoking Status: Tobacco use Status Tobacco use date assessed 08/23/24 08/23/24 11:05 Patient Tobacco Use Status Former Tobacco user 08/23/24 11:05 e-Cigarette/Vaping Use Never Used 08/23/24 11:05 PHQ-9: PHQ-9 Score PHQ-9: Total score 0 08/28/24 01:56 Depression Screening Interpretation: Negative Thrive Assessment: Date of Thrive Assessment Date Thrive assessed 08/23/24 08/23/24 11:05 Currently or been in a relationship where the following occur: I choose not to answer Const Other: Alert oriented x3, no acute distress noted ambulatory with normal gait Orientation/consciousness: patient oriented x3 HENMT Mouth: moist mucous membranes Eyes General: appearance normal, both eyes and all related structures Neck Neck: Yes full ROM, Yes no lymphadenopathy and Yes supple Resp Auscultation: clear to auscultation bilaterally Cardio Other: S1-S2 present regular rate and rhythm General: Yes no CVA tenderness Back/Spine/Pelvis Back: no CVA tenderness and No back tenderness Neuro General: patient oriented x3, gait normal, moves all extremities, Normal light touch and pain sensation, no focal motor deficits and CN's II-XI intact bilaterally Extrem General: Yes full ROM, Yes no joint enlargement, Yes no clubbing, cyanosis or edema, Yes no pedal edema and Yes normal gait Results Reviewed Results Reviewed: Name: Janeth Xie Age/Sex: 68/F : 1955 [facility]#: [id number] Unit#: [id number] Attend Dr: Debbi Sarmiento MD Re08/21/24 Status: DEP REF Location: [facility] Disch: SPEC : [id number] B[place]: 08/21/24 STATUS: COMP REQ : [id number] RECD: 08/21/24-[address]: Debbi Sarmiento MD COMP: 08/21/24-1152 ENTERED: 08/21/[address]: ORDERED: AST, ALT, Lipid Panel, Vitamin D 25-OH Test Result Flag Reference AST (GOT) 24 5-31 U/L ALT (GPT) 17 0-31 U/L Triglyceride 142 <150 mg/dL Desirable Triglyceride: less than 150 mg/dL Borderline High Triglyceride 150-199 mg/dL High Triglyceride: 200-499 mg/dL Very High Triglyceride: greater than or equal to 5OO mg/dL Cholesterol 195 <200 mg/dL Desirable Cholesterol: less than 200 mg/dL Borderline High Cholesterol: 200-239 mg/dL High Cholesterol: greater than 239 mg/dL LDL Calculated 121 H <100 mg/dL Desirable LDL: less than 100 mg/dL Near Optimal/Above Optimal LDL: 110-129 mg/dL Borderline High LDL: 130-159 mg/dL High LDL: 160-189 mg/dL Very High LDL: greater than or equal to 190 mg/dL HDL 46 >40 mg/dL Desirable HDL: greater than 40 mg/dL Note: This HDL assay may give artificially low results in patients with liver disease. Vit D 25-OH Tot 55.5 >30 ng/mL Health Based Reference Values* < 20 ng/mL Deficient 20-30 ng/mL Insufficient > 30 ng/mL Sufficient *Duong SIMPSON. N Engl J Med. 2007;357:266-280 Assessment and Plan Assessment & Plan (1) Dyslipidemia: Code(s): E78.5 - Hyperlipidemia, unspecified Plan: Reviewed recent fasting lipid profile with patient with LDL cholesterol slightly higher than last check . Continue rosuvastatin 5 mg daily, and Krill oil supplements , in addition to adherence to low-cholesterol diet and regular exercise, at least 30 minutes 3 to 4 times a week. Advised patient to make healthy food choices, eat more fruits, vegetables, whole grains, wild caught fish and low-fat dairy. Limit amount of meat and fried or fatty food products, as well as processed foods and fast foods. Follow-up scheduled with repeat fasting lipid panel in 6 months. Orders: Orders Lipid Panel 01/27/25 E78.5 - Hyperlipidemia, unspecified, Z13.1 - Encounter for screening for diabetes mellitus, Z78.0 - Asymptomatic menopausal state Alanine Aminotransferase 01/27/25 E78.5 - Hyperlipidemia, unspecified, Z13.1 - Encounter for screening for diabetes mellitus, Z78.0 - Asymptomatic menopausal state Aspartate Amino Transferase 01/27/25 E78.5 - Hyperlipidemia, unspecified, Z13.1 - Encounter for screening for diabetes mellitus, Z78.0 - Asymptomatic menopausal state Vitamin D 25-OH Total 01/27/25 E78.5 - Hyperlipidemia, unspecified, Z13.1 - Encounter for screening for diabetes mellitus, Z78.0 - Asymptomatic menopausal state Glucose Fasting 01/27/25 E78.5 - Hyperlipidemia, unspecified, Z13.1 - Encounter for screening for diabetes mellitus, Z78.0 - Asymptomatic menopausal state Coding Level of Care Code Est Pt Level 3 (96763) Diagnoses Dyslipidemia E78.5 Additional Codes MELIA-7 Assessment Billing - MELIA-7 Assessment Tool: MELIA-7 Assessment 33273 ([id number])
[2024-08-23 11:04] VITALS: BP 110/82; PULSE 61; O2SAT 96; BMI 26.3
== END 2024-08-23 13:44 | disposition home or self-care (01) ==
PROVIDERS: PCP Internal Medicine; Visit Provider Internal Medicine
DX: E78.5 Hyperlipidemia, unspecified (principal)

== ENCOUNTER → 2024-08-23 10:44 | Outpatient (BNVA) | payer MEDICARE, SELFPAY | PROVIDERS: PCP Internal Medicine; Visit Provider Internal Medicine | DX: E78.5 Hyperlipidemia, unspecified (principal) | CPT/HCPCS: 96127; 99212 ==

== ENCOUNTER 2025-01-23 08:05 | Outpatient (AMB) | payer MEDICARE, SELFPAY ==
[2025-01-23 08:15] VITALS: BP 128/82; PULSE 72; RESP 18; TEMP 36.7; O2SAT 96; BMI 26.1
--- NOTE | 2025-01-23 08:15 | MHC.OFFWIV ---
Intake Vital Signs 01/23/25 08:15 Height 5 ft 1 in Weight 138 lb BMI 26.1 BP 128/82 Blood Pressure Location Lt brachial Position Sitting Respiration 18 Pulse 72 Pulse Source Pulse Oximeter Temp 98.1 F Temp Source Oral Pulse Oximetry (%) 96 Oxygen Delivery Method Room Air Intake Visit Reasons: EP cold for 1+ month, sinus congestion Intake Note: Pt is here today for a sick visit. Pt c/o sinus congestion, cough for a month now. Pt is feeling very exhausted. Patient Tobacco Use Status: Former Tobacco user Allergies ciprofloxacin [Cipro] Allergy (Unknown, Verified 01/23/25 08:19) anaphylaxis atorvastatin Adverse Reaction (Unknown, Verified 01/23/25 08:19) Muscle Pain simvastatin Adverse Reaction (Unknown, Verified 01/23/25 08:19) Muscle Pain Do you need a note to return to daycare/school/sports/work: No HPI HPI Comments History of Present Illness Details History The patient is a 69-year-old female presenting with symptoms indicative of sinusitis and associated fatigue. Initial symptoms commenced over one month ago, closely resembling a severe head cold. During this time, despite repeated negative tests for COVID-19, severe fatigue and sinus congestion predominated, with ear discomfort noted. The absence of fever led to the initial presumption of a less severe viral condition. Cold sores developed early in the disease course, reinforcing viral considerations. Daily nasal irrigation via a Navage device has not alleviated the sinus pressure experienced. Recourse to medication, including prednisone and antibiotics, has historically been effective; however, current self-management with Sudafed has been inadequate. She states she usually gets solumedrol dose pack and Zpak from ENT Dr Solano and is asking for those medications. Physical Exam General: Cooperative, healthy appearing, comfortable and no acute distress Orientation/consciousness: Patient oriented x3 Limitations: No limitations Head: Normal to inspection Ears: Hearing grossly normal bilaterally, external ears normal and TM's normal bilaterally Nose: Normal external nose present, Normal nares present and No nasal discharge present Face and sinus: Normal facial exam and Yes sinuses tender frontal Mouth: Normal oral and palatal mucosa present and moist mucous membranes Throat: Yes tonsils normal, Yes uvula midline. Posterior oropharynx erythema Eyes: Appearance normal, both eyes and all related structures Neck: Normal visual inspection Respiratory: Clear to auscultation bilaterally. Normal respiratory effort, able to speak in complete sentences, Actively coughing, no respiratory distress, not tachypneic, no tripod positioning and no use of accessory muscles Cardiovascular: Regular rate and rhythm. Normal S1 and S2 Skin: No rashes or lesions noted Neuro: Patient oriented x3 Extremities: Normal to inspection and Yes no clubbing, cyanosis or edema PFSH Medical History Osteopenia of left femoral neck Cataract Positional lightheadedness Seasonal allergies Menopause Dyslipidemia Recurrent cold sores Surgical History Hx of colonoscopy Status post laser ablation of incompetent vein Status post right breast lumpectomy S/P correction of deviated nasal septum Family History Father Coronary artery disease Hypertension Mother Dyslipidemia Asthma Maternal Uncle Colon cancer Maternal Grandmother Diabetes mellitus Daughter Mental health disorder Paternal Aunt History of breast cancer Paternal Grandmother History of breast cancer Sister History of breast cancer Social History Housing: House Alcohol intake: current Alcohol intake frequency: a few times a month Patient Tobacco Use Status: Former Tobacco user e-Cigarette/Vaping Use: Never Used service: No Current occupational status: retired Cognitive needs: No Hearing needs: No Vision needs: No Female Reproductive History Menstrual Age of Menarche: 10 Review of Systems Const All systems reviewed & are unremarkable except as noted in HPI and below Physical Exam Vital Signs: Last Vital Signs Temp 98.1 F 01/23/25 08:15 Pulse 72 01/23/25 08:15 Resp 18 01/23/25 08:15 BP 128/82 01/23/25 08:15 Pulse Ox 96 01/23/25 08:15 Oxygen Delivery Method Room Air 01/23/25 08:15 BMI result Body Mass Index 26.1 Assessment & Plan Assessment & Plan (1) Sinusitis, acute: Code(s): J01.90 - Acute sinusitis, unspecified Qualifiers: Sinusitis location: frontal Recurrence: non-recurrent Qualified Code(s): J01.10 - Acute frontal sinusitis, unspecified Plan: The patient exhibits symptoms aligning with acute sinusitis compounded by fatigue, necessitating a continuation of historically effective treatments involving prednisone and an antibiotic regimen. A modification in the timing of prednisone to morning doses will help mitigate any potential sleep disturbances due to its stimulant effect. Prescriptions will be filled as per usual practice, considering the economic aspects, and the continued use of nasal irrigation is advised to assist in symptom management. Further viral testing has been deemed unnecessary based on consistent negative results, allowing for focused treatment on the sinusitis and associated fatigue. Patient was informed and verbally consented to the use of an ambient scribe for clinic note documentation during this visit Medications: New azithromycin For 250 mg dose pack: take 500 mg today (day 1), then 250 mg for 4 days (days 2-5) PO 6 tabs 0RF methylprednisolone PO PER PKG DIR for 6 days 21 ea 0RF Coding Level of Care Code Est Pt Level 3 (31441) Diagnoses Acute non-recurrent frontal sinusitis J01.10 Sinusitis location: frontal Recurrence: non-recurrent
--- OUTSIDE RECORDS SUMMARY | 2025-01-23 08:15 | XMS_ITS | Patient Health Record ---
Author Organization [facility] Address [address] [place] [address] Care Team Providers Care Costuming Supervisor Name Role Phone Torsten BHATTI, Debbi Primary Care Provider Guillermo Wise Unavailable [phone] REASON FOR REFERRAL No Information MEDICATIONS Medication SIG (Take, Route, Frequency, Duration) Notes Start Date End Date Status Krill Oil 1000 MG as directed Orally Active ZyrTEC Allergy 10 MG 1 tablet Orally Once a day for 30 day(s) Active Rosuvastatin Calcium 5 MG TAKE ONE TABLETS BY MOUTH DAILY 5 DAYS A WEEK AND TAKE TWO TABLETS TWICE A WEEK Oral for 88 Active Iron 325 (65 Fe) MG 1 tablet Orally Because she donates platelets Active Flonase Active IMMUNIZATIONS Vaccine Route Administration Date Status Comme nts Influenza Unknown 07/30/2020 Administered SOCIAL HISTORY Sex Assigned At : Social History Observation Description Sex Assigned At Unknown PROBLEMS Problem Type ICD Code Onset Dates Problem Status W/U Status Risk SNOMED Code Notes Problem Encounter for screening for malignant neoplasm of colon (Z12.11) Active confirmed 130114444 Problem History of adenomatous polyp of colon (Z86.010) Active confirmed 806501682 Problem Family history of colon cancer (Z80.0) Active confirmed 958774381 Problem Long-term current use of high risk medication other than anticoagulant (Z79.899) Active confirmed 212716154 Problem Diverticulosis of sigmoid colon (K57.30) Active confirmed Diverticulosis of sigmoid colon (063398138) PLAN OF TREATMENT Pending Test Test Name Order Date Pathology 06/04/2021 Future Test Test Name Order Date COLONOSCOPY 07/31/2015 COLONOSCOPY 04/29/2021 Insurance Providers Payer Name Payer Address Payer Phone Subscriber Number Group Number Insured Name Patient Relationship to Insured Coverage Start Date Coverage End Date MEDICARE OF [place] [address] [place] [address] [id number] LENORE ARGUETA Self - patient is the insured [employer] ATT[employer] CLAIMS [address] [place] [address] [id number] LENORE ARGUETA Self - patient is the insured MEDICAL (GENERAL) HISTORY Medical History History ICD Code Colonoscopy 02/2010 and 2003- -small tubular adenoimas removed, diverticulosis, and small internal hemorrhoids Nasal polyps Denies [place],DM,CVA,Lung disease,renal dise ase Seasonal allergies Negative colonoscopy in 10/2015 Hyperlipidemia Surgical History Surgery Date(Month/Year) Lumpectomy for benign breast disease-quin ign Deviated septum repair 1982 Nasal polyps
== END 2025-01-23 08:34 | disposition home or self-care (01) ==
PROVIDERS: PCP Internal Medicine; Visit Provider Physician Assistant
DX: J01.10 Acute frontal sinusitis, unspecified (principal)

== ENCOUNTER → 2025-01-23 08:05 | Outpatient (BNVA) | payer MEDICARE, SELFPAY | PROVIDERS: PCP Internal Medicine | DX: J01.10 Acute frontal sinusitis, unspecified (principal) | CPT/HCPCS: 99212 ==

== ENCOUNTER 2025-02-16 07:36 | Outpatient (REF) | payer MEDICARE, SELFPAY ==
[2025-02-16 10:52] LABS: Alanine Aminotransferase 16 U/L (0-31); Aspartate Amino Transferase 26 U/L (5-31); Cholesterol 202 mg/dL (<200); Glucose Fasting 91 mg/dL (60-99); HDL Cholesterol 51 mg/dL (>40); LDL Cholesterol Calculated 121 mg/dL (<100); Triglycerides 154 mg/dL (<150); Vitamin D 25-OH Total 45.2 ng/mL (>30)
== END 2025-02-16 07:37 | disposition home or self-care (01) ==
LOC: HO.HMGCLDS 07:36
PROVIDERS: PCP Internal Medicine; Visit Provider Internal Medicine
DX: Z78.0 Asymptomatic menopausal state (principal); E78.5 Hyperlipidemia, unspecified; Z13.1 Encounter for screening for diabetes mellitus
CPT/HCPCS: 36415; 80061; 82306; 82947; 84450; 84460

== ENCOUNTER 2025-02-26 09:22 | Outpatient (AMB) | payer MEDICARE, SELFPAY ==
[2025-02-26 09:29] VITALS: BP 124/80; PULSE 71; RESP 16; TEMP 36.6; O2SAT 97; BMI 27.0
--- NOTE | 2025-02-26 09:29 | A.OFFVIS_ITS ---
Intake Vital Signs 02/26/25 09:29 Height 5 ft 1 in Weight 143 lb BMI 27.0 BP 124/80 Blood Pressure Location Lt brachial Position Sitting Respiration 16 Pulse 71 Pulse Source Pulse Oximeter Temp 97.8 F Temp Source Oral Pulse Oximetry (%) 97 Oxygen Delivery Method Room Air Intake Visit Reasons: SWV G0439 Intake Note: Pt is here today for her SWV: Last mammogram 07/28/25, bone density scan 07/28/24, colonoscopy 06/04/21 Allergies ciprofloxacin [Cipro] Allergy (Unknown, Verified 02/26/25 09:54) anaphylaxis atorvastatin Adverse Reaction (Unknown, Verified 02/26/25 09:54) Muscle Pain simvastatin Adverse Reaction (Unknown, Verified 02/26/25 09:54) Muscle Pain Medication List - Last Reconciled 02/26/25 by Debbi Sarmiento MD biotin 10,000 mcg PO DAILY calcium carb,lactat-vitamin D3 200 mg-6.25 mcg (250 unit) 1 tab PO DAILY cholecalciferol (vitamin D3) 25 mcg PO DAILY coenzyme Q10 100 mg PO DAILY fluticasone propionate 50 mcg/actuation (Flonase Allergy Relief) 1 spray intranasal DAILY krill oil mg PO magnesium 250 mg PO DAILY bnzftatt-kzcnqij-qlae-lutein 1 tab PO DAILY rosuvastatin 5 mg PO DAILY vitamin E (dl, acetate) 180 mg PO DAILY HPI SWV G0439 HPI Details SWV ? 69 year old lady with hx of mild intermittent asthma , Dyslipidemia and pulmonary nodules , followed by Pulmonary clinic at [facility] , here for her substance Annual Wellness Visit. She is up-to-date with her screening mammogram June 2024 with normal findings. Last colonoscopy was done by Dr. Mcduffie 06/04/2021 with tubular adenoma removed, to be repeated in 2025.. She had a normal fasting lipid panel and fasting blood sugar done 02/16/2025. She goes to [facility] for her routine eye exam. She received her COVID-19 vaccination including booster, gets her yearly flu shots, up-to-date with her shingles vaccine, pneumococcal vaccination and Tdap . She had a bone density scan done 07/28/2024 which showed presence of osteopenia in lumbar spine and left femoral neck, normal in left femur, unchanged from previous scan . She already has a healthcare prox y form completed and in place. \ ? Medical / Social History Reviewed? Past Medical History ?Yes . ? [place] of Care / Care Team list updated ?Yes . ? Surgical/Hospitalization History ?Yes . ? Current Medications (including OTC and supplements) ?Yes . ? Family History ?Yes . ? Tobacco Control form ?Yes . ? AUDIT-C (Alcohol use) form ?Yes . ? Illicit drug use in Social History ?Yes . ? Current diagnosis of depression? ?No ? Appropriate PHQ2/PHQ9 completed ?Yes . ? Data entered by ?Tailing Machine Operator and reviewed by provider ? Fall Risk ? Fall History? Have you had any falls with injury in the past year? ?No . ? Have you had two or more falls in the past year? ?No . ? Fall Risk Assessment: ?No falls in the past year . ? HRA filled out by the patient, reviewed by Provider and scanned. ? IPPE/AWV ? Balance? Romberg ? Negative. ? Tandem walk ?Yes . ? Walk and Turn ?Yes . ? Rise from sit to stand ?Yes . ?Vision? Corrective lens ?Yes ? Vision screen ? Up-to-date, goes to [facility] for her vision screening and glaucoma screening ?Hearing? Whisper test ?pass . ?Written Plan?Completed. See Patient Documents.? [facility] Medical History Osteopenia of left femoral neck Cataract Positional lightheadedness Seasonal allergies Menopause Dyslipidemia Recurrent cold sores Surgical History Hx of colonoscopy Status post laser ablation of incompetent vein Status post right breast lumpectomy S/P correction of deviated nasal septum Family History Father Coronary artery disease Hypertension Mother Dyslipidemia Asthma Maternal Uncle Colon cancer Maternal Grandmother Diabetes mellitus Daughter Mental health disorder Paternal Aunt History of breast cancer Paternal Grandmother History of breast cancer Sister History of breast cancer Social History Housing: House Alcohol intake: current Alcohol intake frequency: a few times a month Patient Tobacco Use Status: Former Tobacco user e-Cigarette/Vaping Use: Never Used service: No Current occupational status: retired Cognitive needs: No Hearing needs: No Vision needs: No Female Reproductive History Menstrual Age of Menarche: 10 Questionnaire Medicare Wellness Checkup What [age] What gender do you identify with?: female During the past 4 weeks, how much have you been bothered by emotional problems such as feeling anxious, depressed, irritable, sad or downhearted, and blue?: slightly During the past 4 weeks, has your physical & emotional health limited your social activities with family, friends, neighbors, or groups?: not at all During the past 4 weeks, how much bodily pain have you generally had?: no pain During the past 4 weeks, was someone available to help you if you needed & wanted help?: yes, as much as I wanted During the past 4 weeks, what was the hardest physical activity you could do for at least 2 minutes?: very heavy Can you get to places out of walking distance without help? (For eg., can you travel alone on buses, taxis or drive your car?): Yes Can you go shopping for groceries or clothes without someone's help?: Yes Can you prepare your own meals?: Yes Can you do your housework without help?: Yes Because of any health problems, do you need the help of another person with your personal care needs such as eating, bathing, dressing or getting around the house?: No Can you handle your own money without help?: Yes During the past 4 weeks, how would you rate your health in general?: good During the past 4 weeks how have things been going for you?: pretty well Are you having difficulties driving your car?: no Do you always fasten your seat belt when you are in a car?: yes, usually During past 4 weeks, have you been bothered by the following: never: Sexual problems?, Trouble eating well?, Teeth or denture problems? and Problems using the telephone? and sometimes: Falling or dizzy when standing up and Tiredness or fatigue? Have you fallen 2 or more times in the past year?: No Are you afraid of falling?: No Are you a smoker?: no During the past 4 weeks, how many drinks of wine, beer, or other alcoholic beverages did you have?: 2-5 drinks per week Do you exercise for about 20 minutes 3 or more times a week?: yes, most of the time Have you been given information to help with the following?: no: Hazards in your house that might hurt you? and no: Keeping track of your medications? How often do you have trouble taking medicines the way you have been told to take them?: I always take medicine as prescribed How confident are you that you can control & manage most of your health problems?: somewhat confident What is your race?: White Mini Mental State Exam (MMSE) Orientation What is the (year) (season) (date) (day) (month)?: year (2024), season (Winter), date (02/26/2025), day ( Wednesday) and month (January) Where are we (state) (county) (town or city) (hospital) (floor)?: state ([place]), county ([place]), town or city ([place]) and hospital/clinic ([facility]) Score Score: 9 Activity of Daily Living Bathing - sponge bath, tub bath or shower: receives no assistance (gets in/out by self, if usual bathing means Dressing - getting clothes from closets & drawers, including inner/outer garments & fasteners.: gets clothes & gets completely dressed without help Toileting - going to the 'toilet room' for urine/bowel elimination & cleaning self/arranging clothes: goes to toilet room, cleans self, arranges clothes without help Transfer: moves in & out of bed and chair without help (may use support object) Continence: controls urination/bowel movements completely by self Feeding: feeds self without help Total Score: 0 Information obtained from: patient Using telephone: independent Traveling: independent Shopping: independent Preparing meals: independent Housework: independent Taking medicine: independent Managing money: independent PHQ-9 Over the last 2 weeks, how often have you been bothered by any of the following problems? 1. Little interest or pleasure in doing things: not at all 2. Feeling down, depressed, or hopeless: not at all 3. Trouble falling or staying asleep, or sleeping too much: several days 4. Feeling tired or having little energy: several days 5. Poor appetite or overeating: several days 6. Feeling bad about yourself - or that you are a failure or have let yourself or your family down: not at all 7. Trouble concentrating on things, such as reading the newspaper or watching television: not at all 8. Moving or speaking so slowly that other people could have noticed. Or the opposite - being so fidgety or restless that you have been moving around a lot more than usual: not at all 9. Thoughts that you would be better off or of hurting yourself in some way: not at all Total score: 3 Depression Screening Interpretation: Negative Depression Screening Done: Yes 02519 - PHQ-9 Billing: Yes Source: Developed by Drs. Guillermo Hair, Valorie B.Bandar Archer and colleagues, with an educational nita from [employer]. Physical Exam Vital Signs: Last Vital Signs Temp 97.8 F 02/26/25 09:29 Pulse 71 02/26/25 09:29 Resp 16 02/26/25 09:29 BP 124/80 02/26/25 09:29 Pulse Ox 97 02/26/25 09:29 Oxygen Delivery Method Room Air 02/26/25 09:29 BMI result Body Mass Index 27.0 Results Reviewed Results Reviewed: Name: Janeth Xie Age/Sex: 69/F : 1955 Unit#: [id number] Attend Dr: Debbi Sarmiento MD Re02/16/25 Status: DEP REF Location: [facility] Disch: SPEC : [id number] BIBIANA: 02/16/25 STATUS: COMP REQ : [id number] RECD: 02/16/[address]: Debbi Sarmiento MD COMP: 02/16/25 ENTERED: 02/16/[address]: ORDERED: Glu Fasting, AST, ALT, Lipid Panel, Vitamin D 25-OH Test Result Flag Reference FBS 91 60-99 mg/dL AST (GOT) 26 5-31 U/L ALT (GPT) 16 0-31 U/L Triglyceride 154 H <150 mg/dL Desirable Triglyceride: less than 150 mg/dL Borderline High Triglyceride 150-199 mg/dL High Triglyceride: 200-499 mg/dL Very High Triglyceride: greater than or equal to 5OO mg/dL Cholesterol 202 H <200 mg/dL Desirable Cholesterol: less than 200 mg/dL Borderline High Cholesterol: 200-239 mg/dL High Cholesterol: greater than 239 mg/dL LDL Calculated 121 H <100 mg/dL Desirable LDL: less than 100 mg/dL Near Optimal/Above Optimal LDL: 110-129 mg/dL Borderline High LDL: 130-159 mg/dL High LDL: 160-189 mg/dL Very High LDL: greater than or equal to 190 mg/dL HDL 51 >40 mg/dL Desirable HDL: greater than 40 mg/dL Note: This HDL assay may give artificially low results in patients with liver disease. Vitamin D 25-OH 45.2 >30 ng/mL Health Based Reference Values* < 20 ng/mL Deficient 20-30 ng/mL Insufficient > 30 ng/mL Sufficient Assessment & Plan Assessment & Plan (1) Encounter for annual wellness exam in Medicare patient: Code(s): Z00.00 - Encounter for general adult medical examination without abnormal findings Plan: Medical wellness checklist reviewed, discussed with patient and updated. She is up-to-date with all her screenings and vaccinations. Has healthcare proxy and MOLST form already completed and scanned into her medical record (2) Mild intermittent asthma: Code(s): J45.20 - Mild intermittent asthma, uncomplicated Qualifiers: Asthma complication type: uncomplicated Qualified Code(s): J45.20 - Mild intermittent asthma, uncomplicated Plan: Not using any inhalers, up-to-date with her pneumonia vaccination and gets yearly flu shot (3) Environmental allergies: Code(s): Z91.09 - Other allergy status, other than to drugs and biological substances Plan: Currently using Flonase Allergy nasal spray as needed (4) Dyslipidemia: Code(s): E78.5 - Hyperlipidemia, unspecified Plan: Fasting labs showed lipids within normal limits, continued on rosuvastatin 5 mg daily and takes Krill oil supplements (5) Osteopenia of left femoral neck: Code(s): M85.852 - Other specified disorders of bone density and structure, left thigh Plan: Currently taking vitamin-D 3 supplements and takes adequate calcium from dietary sources. Stressed importance of doing regular weight-bearing exercise. Repeat bone density scan due next year Orders: Orders Basic Metabolic Panel Fasting 08/11/25 E78.5 - Hyperlipidemia, unspecified, J45.20 - Mild intermittent asthma, uncomplicated, M17.12 - Unilateral primary osteoarthritis, left knee, M85.852 - Other specified disorders of bone density and structure, left thigh, Z00.00 - Encounter for general adult medical examination without abnormal findings, Z71.89 - Other specified counseling, Z78.0 - Asymptomatic menopausal state, Z91.09 - Other allergy status, other than to drugs and biological substances Alanine Aminotransferase 08/11/25 E78.5 - Hyperlipidemia, unspecified, J45.20 - Mild intermittent asthma, uncomplicated, M17.12 - Unilateral primary osteoarthritis, left knee, M85.852 - Other specified disorders of bone density and structure, left thigh, Z00.00 - Encounter for general adult medical examination without abnormal findings, Z71.89 - Other specified counseling, Z78.0 - Asymptomatic menopausal state, Z91.09 - Other allergy status, other than to drugs and biological substances Aspartate Amino Transferase 08/11/25 E78.5 - Hyperlipidemia, unspecified, J45.20 - Mild intermittent asthma, uncomplicated, M17.12 - Unilateral primary osteoarthritis, left knee, M85.852 - Other specified disorders of bone density and structure, left thigh, Z00.00 - Encounter for general adult medical examination without abnormal findings, Z71.89 - Other specified counseling, Z78.0 - Asymptomatic menopausal state, Z91.09 - Other allergy status, other than to drugs and biological substances Lipid Panel 08/11/25 E78.5 - Hyperlipidemia, unspecified, J45.20 - Mild intermittent asthma, uncomplicated, M17.12 - Unilateral primary osteoarthritis, left knee, M85.852 - Other specified disorders of bone density and structure, left thigh, Z00.00 - Encounter for general adult medical examination without abnormal findings, Z71.89 - Other specified counseling, Z78.0 - Asymptomatic menopausal state, Z91.09 - Other allergy status, other than to drugs and biological substances Vitamin D 25-OH Total 08/11/25 E78.5 - Hyperlipidemia, unspecified, J45.20 - Mild intermittent asthma, uncomplicated, M17.12 - Unilateral primary osteoarthritis, left knee, M85.852 - Other specified disorders of bone density and structure, left thigh, Z00.00 - Encounter for general adult medical examination without abnormal findings, Z71.89 - Other specified counseling, Z78.0 - Asymptomatic menopausal state, Z91.09 - Other allergy status, other than to drugs and biological substances Quality Reporting (2019) Depression/Bipolar (159/160/161/177) PHQ-9: Total score: 3 Coding Level of Care Code Medicare Subsequent (G0439) Diagnoses Encounter for annual wellness exam in Medicare patient Z00.00 Mild intermittent asthma without complication J45.20 Asthma complication type: uncomplicated Environmental allergies Z91.09 Dyslipidemia E78.5 Osteopenia of left femoral neck M85.852 Additional Codes PHQ-9 - 93213 - PHQ-9 Billing: Yes ([id number])
== END 2025-02-26 10:20 | disposition home or self-care (01) ==
LOC: HO.HMCC 09:23
PROVIDERS: PCP Internal Medicine; Visit Provider Internal Medicine
DX: Z00.00 Encounter for general adult medical examination without abnormal findings (principal); J45.20 Mild intermittent asthma, uncomplicated; Z91.09 Other allergy status, other than to drugs and biological substances; E78.5 Hyperlipidemia, unspecified; M85.852 Other specified disorders of bone density and structure, left thigh

== ENCOUNTER → 2025-02-26 09:22 | Outpatient (BNVA) | payer MEDICARE, SELFPAY | PROVIDERS: PCP Internal Medicine; Visit Provider Internal Medicine | DX: Z00.00 Encounter for general adult medical examination without abnormal findings (principal); J45.20 Mild intermittent asthma, uncomplicated; E78.5 Hyperlipidemia, unspecified; R91.8 Other nonspecific abnormal finding of lung field; M17.12 Unilateral primary osteoarthritis, left knee; M85.852 Other specified disorders of bone density and structure, left thigh; Z71.89 Other specified counseling; Z91.09 Other allergy status, other than to drugs and biological substances; Z78.0 Asymptomatic menopausal state | CPT/HCPCS: 96127 ==

== ENCOUNTER 2025-03-15 06:44 | Outpatient (REF) | payer MEDICARE, SELFPAY ==
[2025-03-15 10:57] LABS: Appearance Urine Clear; Color Urine Yellow; Glucose Urine UA Negative (Negative); Leukocyte Esterase Urine Small (1+) (Negative); Nitrite Urine Negative (Negative); Specific Gravity - Urine 1.015 (1.005-1.025); UMIC TRIGGER UACC YES; Urine Blood Negative (Negative); Urine Ketones Negative (Negative); Urine Protein Negative (Neg-Trace)
[2025-03-15 11:21] LABS: Bacteria Urine None Seen (None Seen); Hyaline Casts Urine 0-2 /LPF (0-2); RBC Urine 0-2 /HPF (0-2); Squamous Epithelial Cell Urine 0-2 /HPF (0-2); Transitional Epi Cells Urine Present; UACC Culture Trigger YES; WBC Urine 0-5 /HPF (0-5)
== END 2025-03-15 06:45 | disposition home or self-care (01) ==
LOC: HO.HMGCLDS 06:44
PROVIDERS: PCP Internal Medicine; Visit Provider Internal Medicine
DX: R35.0 Frequency of micturition (principal)
CPT/HCPCS: 81001; 87086

== ENCOUNTER 2025-04-21 09:57 | Outpatient (AMB) | payer MEDICARE, SELFPAY ==
--- OUTSIDE RECORDS SUMMARY | 2025-04-21 09:59 | XMS_ITS | Patient Health Record ---
Author Organization [facility] Address [address] [place] [address] Care Team Providers Care [employer] Name Role Phone Torsten BHATTI, Debbi Primary Care Provider Guillermo Wise Unavailable [phone] Reason For Referral No Information Medications Medication SIG (Take, Route, Frequency, Duration) Notes [...] Because she donates platelets Active Flonase Active Immunizations Vaccine Route Administration Date Status Comme nts Influenza Unknown 07/30/2020 Administered Problems Problem Type SNOMED Code ICD Code Onset Dates Problem Status W/U Status Risk Notes Problem 563368037 Encounter for screening for malignant neoplasm of colon (Z12.11) Active confirmed Problem 857753322 History of adenomatous polyp of colon (Z86.010) Active confirmed Problem 882193918 Family history o f colon cancer (Z80.0) Active confirmed Problem 199316339 Long-term curren t use of high risk medication other than anticoagulant (Z79.899) Active confirmed Problem Diverticulosis of sigmoid colon (668553219) Diverticulosis of sigmoid colon (K57.30) Active confirmed Plan Of Treatment Pending Test Test Name Order Date Pathology 06/04/2021 Future Test Test Name Order Date COLONOSCOPY 07/31/2015 COLONOSCOPY 04/29/2021 Insurance Providers Payer Name Payer Address Payer Phone Subscriber Number Group Number Insured Name Patient Relationship to Insured Coverage Start Date Coverage End Date MEDICARE OF [place] [address] [place] [address] [phone] [id number] LENORE ARGUETA Self - patient is the insured [employer] ATTN CLAIMS [address] [place] [address] [id number] LENORE ARGUETA Self - patient is the insured Medical (General) History Medical History History ICD Code Colonoscopy 02/2010 and 2003- -small tubular adenoimas removed, diverticulosis, and small internal hemorrhoids Nasal polyps Denies MT,DM,CVA,Lung disease,renal dise ase Seasonal allergies Negative colonoscopy in 10/2015 Hyperlipidemia Surgical History Surgery Date(Month/Year) Lumpectomy for benign breast disease-quin ign Deviated septum repair 1982 Nasal polyps
--- NOTE | 2025-04-21 10:16 | AM.OFFWIN_ITS ---
Intake Vital Signs 04/21/25 10:17 Height 5 ft 1 in BMI Reason not done Patient refused/unable BP 112/74 Blood Pressure Location Rt brachial Position Sitting Pulse 90 Pulse Source Pulse Oximeter Temp 98.1 F Temp Source Oral Pulse Oximetry (%) 96 Oxygen Delivery Method Room Air Intake Visit Reasons: EP-Coughing 2Weeks Patient Tobacco Use Status: Former Tobacco user Allergies ciprofloxacin (Cipro) Allergy (Unknown, Verified 04/21/25 10:17) anaphylaxis atorvastatin Adverse Reaction (Unknown, Verified 04/21/25 10:17) Muscle Pain simvastatin Adverse Reaction (Unknown, Verified 04/21/25 10:17) Muscle Pain Do you need a note to return to daycare/school/sports/work: No HPI EP-Coughing 2Weeks HPI Details Patient is a 69-year-old female comes to the walk-in clinic complaining of 2 weeks of coughing fits, nonproductive in nature PFSH Medical History Osteopenia of left femoral neck Cataract Positional lightheadedness Seasonal allergies Menopause Dyslipidemia Recurrent cold sores Surgical History Hx of colonoscopy Status post laser ablation of incompetent vein Status post right breast lumpectomy S/P correction of deviated nasal septum Family History Father Coronary artery disease Hypertension Mother Dyslipidemia Asthma Maternal Uncle Colon cancer Maternal Grandmother Diabetes mellitus Daughter Mental health disorder Paternal Aunt History of breast cancer Paternal Grandmother History of breast cancer Sister History of breast cancer Social History Housing: House Alcohol intake: current Alcohol intake frequency: a few times a month Patient Tobacco Use Status: Former Tobacco user e-Cigarette/Vaping Use: Never Used service: No Current occupational status: retired Cognitive needs: No Hearing needs: No Vision needs: No Female Reproductive History Menstrual Age of Menarche: 10 Review of Systems Const All systems reviewed & are unremarkable except as noted in HPI and below Physical Exam Vital Signs: Last Vital Signs Temp 98.1 F 04/21/25 10:17 Pulse 90 04/21/25 10:17 BP 112/74 04/21/25 10:17 Pulse Ox 96 04/21/25 10:17 Oxygen Delivery Method Room Air 04/21/25 10:17 Const General: cooperative, healthy appearing, no acute distress, alert, awake, Physically active and well groomed; No anxious, diaphoretic, intoxicated appearing, poor hygiene or tired appearing Nutritional Appearance: average body habitus Orientation/consciousness: oriented to person Limitations: no limitations HEENT Head: Yes normal to inspection, Yes normocephalic and Yes atraumatic Ears: hearing grossly normal bilaterally, external ears normal, TM's normal bilaterally and EAC's normal General nose exam: Normal external nose present, Normal nares present, No nasal polyps present, Normal nasal mucous membranes and turbinates present, Normal septum present and No nasal discharge present Face and sinus: Yes normal facial exam, Yes sinuses nontender and Yes face symmetric Mouth: Normal oral and palatal mucosa present, lip normal and tongue normal Throat: Yes posterior oropharynx normal, Yes abnormal tonsil (mildly erythematous bilaterally), No peritonsillar mass, No postnasal drainage, No uvular edema and No cobblestoning Eyes General: appearance normal, both eyes and all related structures Neck Neck: Yes normal visual inspection, Yes full ROM, Yes no lymphadenopathy, Yes trachea midline, Yes supple and No anterior neck swelling Chest Chest palpation & inspection: normal palpation of entire chest wall Resp Effort & Inspection: normal respiratory effort, able to speak in complete sentences, no audible wheezes, no grunting, not labored, no nasal flaring, no respiratory distress, no retractions, not tachypneic, no tripod positioning, no use of accessory muscles, No prolonged expiratory phase and symmetric chest movement Auscultation: not clear to auscultation bilaterally, no crackles, no rales, rhonchi, wheezes, lung sounds not diminished and No rub present Cardio Palpation: normal PMI Rate: regular rate Rhythm: regular rhythm Heart sounds: S1 normal heart sound present and S2 normal heart sound present Skin Other: Good color, warm and dry Neuro General: oriented to person Psych Appearance: grossly normal Mental Status: mental status grossly normal Speech and movement: Normal speech and movement present Affect: normal affect Attitude: cooperative Thought process: Normal thought process present Insight: Good insight present (Psych) Judgement: Good judgement present (Psych) Assessment & Plan Assessment & Plan (1) Bronchitis: Code(s): J40 - Bronchitis, not specified as acute or chronic Plan: Patient with seasonal allergy history, with apparent acute bronchitis, with reactive airway symptoms. We will write for prednisone course as well as an tibiotics. Declined chest x-ray or viral testing today. She should follow up if symptoms persist or worsen, or go to the emergency department with worrisome symptoms. Medications: New azithromycin For 250 mg dose pack: take 500 mg today (day 1), then 250 mg for 4 days (days 2-5) PO 6 tabs 0RF prednisone then take 3 tabs for 3 days, then 2 tabs for 3 days, then 1 tab for 3 days. 40 mg (4 x 10 mg) PO DAILY 30 tabs 0RF 3 days benzonatate 200 mg PO BID-TID PRN 30 caps 0RF cough benzonatate 200 mg PO BID-TID PRN 30 caps 0RF cough Coding Level of Care Code Est Pt Level 4 (65258) Diagnoses Bronchitis J40
[2025-04-21 10:17] VITALS: BP 112/74; PULSE 90; TEMP 36.7; O2SAT 96
== END 2025-04-21 11:36 | disposition home or self-care (01) ==
LOC: HO.HMCWIC 09:57
PROVIDERS: PCP Internal Medicine; Visit Provider Physician Assistant Medical
DX: J40 Bronchitis, not specified as acute or chronic (principal)

== ENCOUNTER → 2025-04-21 09:57 | Outpatient (BNVA) | payer MEDICARE, SELFPAY | PROVIDERS: PCP Internal Medicine; Visit Provider Physician Assistant Medical | DX: J40 Bronchitis, not specified as acute or chronic (principal) | CPT/HCPCS: 99212 ==

== ENCOUNTER 2025-07-17 14:05 | Outpatient (AMB) | payer MEDICARE, SELFPAY ==
--- OUTSIDE RECORDS SUMMARY | 2025-07-17 15:25 | XMS_ITS | Patient Health Record ---
Author Organization [facility] Address [address] [place] [address] Care Team Providers Care Analyst Business Analysis Name Role Phone Torsten BHATTI, Debbi Caicedo Primary Care Provider Un available Dimitri Krishnamurthy Unavailable [phone] Allergies Allergen (clinical drug ingredient) Drug/Non Drug Allergy documented on EMR Reaction Allergy Type Onset Date Status cipro/levaquin (uncoded) Unknown Allergy Active Reason For Referral No Information Medications Medication SIG (Take, Route, Frequency, Duration) Notes Start Date End Date Status ZyrTEC one a day Active Rosuvastatin Calcium Active Multi Vitamin - 1 tablet Orally Once a day; Duration: 30 day(s) Active Night Splint AFO - L1930 as directed 10/25/2019 Active Flonase one a day Active Social History Tobacco Use: Social History Observation Description Date Details (start date - stop date) Never Smoker NA - NA Tobacco Use/Smoking Question Answer Notes Are you a: nonsmoker Alcohol Screen Question Answer Notes Did you have a drink contain ing alcohol in the past year? Yes How often did you have a dri nk containing alcohol in the past year? Monthly or less (1 point) Points 1 Interpretation Negative Plan Of Treatment No Information Insurance Providers Payer Name Payer Address Payer Phone Subscriber Number Group Number Insured Name Patient Relationship to Insured Coverage Start Date Coverage End Date Medicare National [facility] [employer] [address] [place] [address] [id number] Janeth Xie Self - patient is the insured 9 [employer] Blue Shield [address] [place] [address] [id number] Janeth Xie Self - patient is the insured Medical (General) History Medical History History ICD Code Arthritis Back,Hip,and Knee pain chronic sinusitis Measles Mumps Chicken pox Vericose Veins Surgical History Surgery Date(Month/Year) deviated septum repair 1989 vein ablation 08/16-08/2015
--- OUTSIDE RECORDS SUMMARY | 2025-07-17 15:26 | XMS_ITS | Patient Health Record ---
Author Organization [facility] Address [address] [place] [address] Care Team Providers Care Shot Dropper Name Role Phone Torsten BHATTI, Debbi Primary Care Provider Guillermo Wise Unavailable [phone] Reason For Referral No Information Medications Medication [...] Problem Status W/U Status Risk Notes Problem 212723613 Encounter for screening for malignant neoplasm of colon (Z12.11) Active confirmed Problem 270198765 History of adenomatous polyp of colon (Z86.010) Active confirmed Problem 966751322 Family history o f colon cancer (Z80.0) Active confirmed Problem 316194698 Long-term curren t use of high risk medication other than anticoagulant (Z79.899) Active confirmed Problem Diverticulosis of sigmoid colon (033938048) Diverticulosis of sigmoid colon (K57.30) Active confirmed Plan Of Treatment Pending Test Test Name Order Date Pathology 06/04/2021 Future Test Test Name Order Date COLONOSCOPY 07/31/2015 COLONOSCOPY 04/29/2021 Insurance Providers Payer Name Payer Address Payer Phone Subscriber Number Group Number Insured Name Patient Relationship to Insured Coverage Start Date Coverage End Date MEDICARE OF [place] [address] [place] [address] [id number] LENORE ARGUETA Self - patient is the insured MEDEX ATTN CLAIMS [address] [place] [address] [id number] LENORE ARGUETA Self - patient is the insured Medical (General) History Medical History History ICD Code Colonoscopy 02/2010 and 2003- -small tubular adenoimas removed, diverticulosis, and small internal hemorrhoids Nasal polyps Denies [place],DM,CVA,Lung disease,renal dise ase Seasonal allergies Negative colonoscopy in 10/2015 Hyperlipidemia Surgical History Surgery Date(Month/Year) Lumpectomy for benign breast disease-quin ign Deviated septum repair 1982 Nasal polyps
== END 2025-07-17 14:20 | disposition home or self-care (01) ==
LOC: HO.HMGAL 14:05
PROVIDERS: PCP Internal Medicine; Visit Provider Registered Nurse Emergency
DX: J30.89 Other allergic rhinitis (principal)
CPT/HCPCS: 95117; 95165

== ENCOUNTER 2025-08-03 07:28 | Outpatient (REF) | payer MEDICARE, SELFPAY ==
--- NOTE | ~2025-08-03 | MM_ITS ---
EXAMINATION: MM SCREENING DIGITAL BREAST TOMOSYNTHESIS, BILATERAL CLINICAL INFORMATION: Screening. Asymptomatic. COMPARISON: Mammography: Comparison is made with available priors TECHNIQUE: Digital breast mammography with tomosynthesis is performed in both the craniocaudal and mediolateral oblique views along with computer-aided detection (CAD). FINDINGS: There are scattered areas of fibroglandular density (ACR BI-RADS breast composition Category b). Oval mass left upper outer quadrant with internal biopsy clip from previous benign needle core biopsy is stable. There are no significant masses, abnormal calcifications, or other abnormalities. MM/MM tomosynthesis screening BI IMPRESSION: No mammographic evidence of malignancy. ASSESSMENT: BI-RADS BI-RADS 2 - Benign Findings RECOMMENDATION: Routine annual mammography screening. 1 year F/U This examination should not preclude the clinical evaluation of a suspicious palpable abnormality. This patient's information was entered into a reminder system with a target due date for their next mammogram. Electronically signed by: Karen Petty DO 08/06/2025 05:27 PM EDT
--- OUTSIDE RECORDS SUMMARY | 2025-08-03 07:30 | XMS_ITS | Patient Health Record ---
Author Organization [facility] Address [address] [place] [address] Care Team Providers Care Tong Carrier Name Role Phone Torsten BHATTI, Debbi Primary Care Provider Guillermo Wise Unavailable [phone] Reason For Referral No Information Medications Medication [...] Problem Status W/U Status Risk Notes Problem 981209636 Encounter for screening for malignant neoplasm of colon (Z12.11) Active confirmed Problem 325870916 History of adenomatous polyp of colon (Z86.010) Active confirmed Problem 712436713 Family history o f colon cancer (Z80.0) Active confirmed Problem 352166006 Long-term curren t use of high risk medication other than anticoagulant (Z79.899) Active confirmed Problem Diverticulosis of sigmoid colon (267017783) Diverticulosis of sigmoid colon (K57.30) Active confirmed Plan Of Treatment Pending Test Test Name Order Date Pathology 06/04/2021 Future Test Test Name Order Date COLONOSCOPY 07/31/2015 COLONOSCOPY 04/29/2021 Insurance Providers Payer Name Payer Address Payer Phone Subscriber Number Group Number Insured Name Patient Relationship to Insured Coverage Start Date Coverage End Date MEDICARE OF [place] [address] [place] [address] [id number] LENORE ARGUETA Self - patient is the insured MED[employer] ATTN CLAIMS [address] [place] [address] [id number] LENORE ARGUETA Self - patient is the insured Medical (General) History Medical History History ICD Code Colonoscopy 02/2010 and 2003- -small tubular adenoimas removed, diverticulosis, and small internal hemorrhoids Nasal polyps Denies [place],DM,CVA,Lung disease,renal dise ase Seasonal allergies Negative colonoscopy in 10/2015 Hyperlipidemia Surgical History Surgery Date(Month/Year) Lumpectomy for benign breast disease-quin ign Deviated septum repair 1982 Nasal polyps
--- OUTSIDE RECORDS SUMMARY | 2025-08-03 07:30 | XMS_ITS | Patient Health Record ---
Author Organization [facility] Address [address] [place] [address] Care Team Providers Care Cobol Programmer Name Role Phone Torsten BHATTI, Debbi Caicedo Primary Care Provider Un available Dimitri Krishnamurthy Unavailable [phone] Allergies Allergen (clinical drug ingredient) Drug/Non Drug [...] Start Date Coverage End Date Medicare National [facility] [employer] [address] [place] [address] [id number] Janeth Xie Self - patient is the insured 9 [employer] Blue Shield [address] [place] [address] [id number] Janeth Xie Self - patient is the insured Medical (General) History Medical History History ICD Code Arthritis Back,Hip,and Knee pain chronic sinusitis Measles Mumps Chicken pox Vericose Veins Surgical History Surgery Date(Month/Year) deviated septum repair 1989 vein ablation 08/16-08/2015
== END 2025-08-03 07:29 | disposition home or self-care (01) ==
LOC: HO.MAMMO 07:28
PROVIDERS: PCP Internal Medicine; Visit Provider Internal Medicine
DX: Z12.31 Encounter for screening mammogram for malignant neoplasm of breast (principal)
CPT/HCPCS: 77063; 77067

== ENCOUNTER → 2025-08-03 07:45 | Outpatient (BNV) | payer MEDICARE, SELFPAY | PROVIDERS: PCP Internal Medicine; Visit Provider Internal Medicine | DX: Z12.31 Encounter for screening mammogram for malignant neoplasm of breast (principal) | CPT/HCPCS: 77063; 77067 ==

== ENCOUNTER 2025-08-13 08:05 | Outpatient (AMB) | payer MEDICARE, SELFPAY ==
[2025-08-13 08:06] VITALS: BP 112/78; PULSE 83; RESP 18; TEMP 36.8; O2SAT 96; BMI 26.4
--- NOTE | 2025-08-13 08:06 | AM.OFFWIN_ITS ---
Intake Vital Signs 08/13/25 08:06 Height 5 ft 1 in Weight 140 lb BMI 26.4 BP 112/78 Blood Pressure Location Lt brachial Position Sitting Respiration 18 Pulse 83 Pulse Source Pulse Oximeter Temp 98.2 F Temp Source Oral Pulse Oximetry (%) 96 Oxygen Delivery Method Room Air Intake Visit Reasons: EP Cold, cough, mucus Patient Tobacco Use Status: Former Tobacco user Regional Retail Sales Manager Required: No Accompanied by: Self / Same As Patient Allergies ciprofloxacin (Cipro) Allergy (Unknown, Verified 08/13/25 08:09) anaphylaxis atorvastatin Adverse Reaction (Unknown, Verified 08/13/25 08:09) Muscle Pain simvastatin Adverse Reaction (Unknown, Verified 08/13/25 08:09) Muscle Pain HPI HPI Comments History of Present Illness Details History - The patient is a 69-year-old female pr esenting with symptoms of a sore throat, runny nose, cough, and difficulty breathing. - Symptoms began with a sore throat, pro gressing to a runny nose, eyes, and persistent cough. - By Wednesday, the patient experienced s evere coughing with green sputum and breathing difficulty, alleviated by an inhaler. - Fever of 100.2?F was noted, resolving quickly. - History of allergies, negative COVID-1 9 test, and bedridden due to fatigue and lack of appetite. - She states that she has been feeling b amparo today and her phlegm is now yellow and not green. - She has been using her inhaler. - She denies smoking, sick contacts, CROWELL, sore throat, ear pain, CP, SOB, abd pain, or n/v/d. Physical Exam General: Cooperative, healthy appearing, comfortable and no acute distress Orientation/consciousness: Patient oriented x3 Limitations: No limitations Head: Normal to inspection Ears: Hearing grossly normal bilaterally, external ears normal and TM's normal bilaterally Nose: Normal external nose present, normal nares present, and nasal discharge present. Face and sinus: Sinuses nontender to palpation. Mouth: Normal oral and palatal mucosa present and moist mucous membranes noted. Throat: Tonsils normal. Uvula is midline. Posterior oropharynx with erythema and no exudates. Eyes: Appearance normal, both eyes and all related structures Neck: Normal visual inspection, full ROM. No lymphadenopathy noted. Respiratory: Lungs sound kind of junky. Clear to auscultation bilaterally. Normal respiratory effort, able to speak in complete sentences. No respiratory distress, not tachypneic, no tripod positioning and no use of accessory muscles. Cardiovascular: Regular rate and rhythm. Normal S1 and S2 Skin: No rashes or lesions noted Patient was informed and verbally consented to the use of an ambient scribe for clinic note documentation during this visit [facility] Medical History Osteopenia of left femoral neck Cataract Positional lightheadedness Seasonal allergies Menopause Dyslipidemia Recurrent cold sores Surgical History Hx of colonoscopy Status post laser ablation of incompetent vein Status post right breast lumpectomy S/P correction of deviated nasal septum Family History Father Coronary artery disease Hypertension Mother Dyslipidemia Asthma Maternal Uncle Colon cancer Maternal Grandmother Diabetes mellitus Daughter Mental health disorder Paternal Aunt History of breast cancer Paternal Grandmother History of breast cancer Sister History of breast cancer Social History Housing: House Alcohol intake: current Alcohol intake frequency: a few times a month Patient Tobacco Use Status: Former Tobacco user e-Cigarette/Vaping Use: Never Used service: No Current occupational status: retired Cognitive needs: No Hearing needs: No Vision needs: No Female Reproductive History Menstrual Age of Menarche: 10 Review of Systems Const All systems reviewed & are unremarkable except as noted in HPI and below Physical Exam Vital Signs: Last Vital Signs Temp 98.2 F 08/13/25 08:06 Pulse 83 08/13/25 08:06 Resp 18 08/13/25 08:06 BP 112/78 08/13/25 08:06 Pulse Ox 96 08/13/25 08:06 Oxygen Delivery Method Room Air 08/13/25 08:06 BMI result Body Mass Index 26.4 Results Reviewed Results Reviewed: will review the CXR in the office Assessment & Plan Assessment & Plan (1) Cough: Code(s): R05.9 - Cough, unspecified Qualifiers: Cough type: acute Qualified Code(s): R05.1 - Acute cough Plan Most likely Acute Bronchitis vs covid vs URI vs flu vs viral illness vs CAP plan - Plan includes a respiratory panel and chest x-ray to rule out pneumonia. - Prescribed prednisone and cough medicine for symptom management. - continue with albuterol as needed - will call with the results of the CXR and resp panel - follow up with PCP. Orders: Orders Resp Pathogen Panel - [facility] [place] Today J06.9 - Acute upper respiratory infection, unspecified XR chest 2V Today R05.9 - Cough, unspecified Medications: New prednisone 40 mg (2 x 20 mg) PO DAILY 10 tabs 0RF 5 days benzonatate 100 mg PO bid-tid PRN 20 caps 0RF Cough 7 days Coding Level of Care Code Est Pt Level 4 (55549) Diagnoses Acute cough R05.1 Cough type: acute
== END 2025-08-13 08:54 | disposition home or self-care (01) ==
PROVIDERS: PCP Internal Medicine; Visit Provider Physician Assistant Medical
DX: R05.1 Acute cough (principal)

== ENCOUNTER 2025-08-13 08:05 | Outpatient (REF) | payer MEDICARE, SELFPAY ==
--- NOTE | ~2025-08-13 | XR_ITS ---
EXAMINATION: XR CHEST 2 VIEWS HISTORY: R05.9 - Cough, unspecified COMPARISON: Comparison is made with the prior examination dated 05/01/2020. FINDINGS: PA and lateral views of the chest are submitted. The lungs are expanded and clear. There is no pleural effusion, pneumothorax, or pulmonary vascular congestion. The heart is normal in size. There is mild degenerative disc disease of the spine. XR/XR chest 2V IMPRESSION: No acute cardiopulmonary abnormality. Electronically signed by: Guillermo Sandra MD 08/13/2025 09:08 AM EDT
--- OUTSIDE RECORDS SUMMARY | 2025-08-13 10:13 | XMS_ITS | Patient Health Record ---
Author Organization [facility] Address [address] [place] [address] Care Team Providers Care Structural Metal Fabricator Apprentice Name Role Phone Torsten BHATTI, Debbi Primary Care Provider Guillermo Wise Unavailable [phone] Reason For Referral No Information Medications Medication [...] Problem Status W/U Status Risk Notes Problem [id number] Encounter for screening for malignant neoplasm of colon (Z12.11) Active confirmed Problem 102478008 History of adenomatous polyp of colon (Z86.010) Active confirmed Problem 029246780 Family history o f colon cancer (Z80.0) Active confirmed Problem 606392432 Long-term curren t use of high risk medication other than anticoagulant (Z79.899) Active confirmed Problem Diverticulosis of sigmoid colon (441874234) Diverticulosis of sigmoid colon (K57.30) Active confirmed Plan Of Treatment Pending Test Test Name Order Date Pathology 06/04/2021 Future Test Test Name Order Date COLONOSCOPY 07/31/2015 COLONOSCOPY 04/29/2021 Insurance Providers Payer Name Payer Address Payer Phone Subscriber Number Group Number Insured Name Patient Relationship to Insured Coverage Start Date Coverage End Date MED[place]ARE OF [place] [address] [place] [address] [id number] LENORE ARGUETA Self - patient is the insured MED[employer] ATTN CLAIMS [address] [place] [address] [id number] LENORE ARGUETA Self - patient is the insured Medical (General) History Medical History History ICD Code Colonoscopy 02/2010 and 2003- -small tubular adenoimas removed, diverticulosis, and small internal hemorrhoids Nasal polyps Denies [place],DM,CVA,Lung disease,renal dise ase Seasonal allergies Negative colonoscopy in 10/2015 Hyperlipidemia Surgical History Surgery Date(Month/Year) Lumpectomy for benign breast disease-quin ign Deviated septum repair 1982 Nasal polyps
--- OUTSIDE RECORDS SUMMARY | 2025-08-13 10:13 | XMS_ITS | Patient Health Record ---
Author Organization [facility] Address [address] [place] [address] Care Team Providers Care Diagrammer Name Role Phone Torsten BHATTI, Debbi Caicedo Primary Care Provider Un available Dimitri Krishnamurthy Unavailable [phone] Allergies Allergen (clinical drug ingredient) Drug/Non Drug [...] Start Date Coverage End Date Medicare National [facility] [employer] [facility] [address] [place] [address] [id number] Janeth Xie Self - patient is the insured 9 [employer] Blue Shield [address] [place] [address] [id number] Janeth Xie Self - patient is the insured Medical (General) History Medical History History ICD Code Arthritis Back,Hip,and Knee pain chronic sinusitis Measles Mumps Chicken pox Vericose Veins Surgical History Surgery Date(Month/Year) deviated septum repair 1989 vein ablation 08/16-08/2015
[2025-08-13 10:32] LABS: Alanine Aminotransferase 20 U/L (0-31); Anion Gap 12 (12-20); Aspartate Amino Transferase 28 U/L (5-31); Blood Urea Nitrogen 16 mg/dL (9-16); Calcium 9.0 mg/dL (8.4-10.2); Carbon Dioxide 26 mmol/L (22-29); Chloride 107 mmol/L (96-108); Cholesterol 175 mg/dL (<200); Estimated Glomerular Filt Rate > 60; HDL Cholesterol 45 mg/dL (>40); Potassium 3.9 mmol/L (3.3-5.1); Sodium 141 mmol/L (135-145); Triglycerides 128 mg/dL (<150)
[2025-08-13 14:31] LABS: Chlamydia pneumoniae PCR Not Detected (Not Detect.); Coronavirus 229E PCR Not Detected (Not Detect.); Coronavirus HKU1 PCR Not Detected (Not Detect.); Coronavirus NL63 PCR Not Detected (Not Detect.); Coronavirus OC43 PCR Not Detected (Not Detect.); RSV PCR Not Detected (Not Detect.); Rhino/Enterovirus PCR Detected (Not Detect.)
[2025-08-13 14:39] LABS: Influenza A H1 PCR Not Detected (Not Detect.); Influenza A H1-2009 PCR Not Detected (Not Detect.); Influenza A H3 PCR Not Detected (Not Detect.); SARS-CoV-2 PCR Not Detected (Not Detect.)
== END 2025-08-13 08:06 | disposition home or self-care (01) ==
LOC: HO.HMGCX 08:05
PROVIDERS: PCP Internal Medicine; Referring Provider Physician Assistant Medical; Visit Provider Internal Medicine
DX: R05.1 Acute cough (principal); M85.852 Other specified disorders of bone density and structure, left thigh; M17.12 Unilateral primary osteoarthritis, left knee; J45.20 Mild intermittent asthma, uncomplicated; E78.5 Hyperlipidemia, unspecified; J06.9 Acute upper respiratory infection, unspecified; Z00.00 Encounter for general adult medical examination without abnormal findings; Z91.09 Other allergy status, other than to drugs and biological substances; Z71.89 Other specified counseling; Z78.0 Asymptomatic menopausal state; Z87.891 Personal history of nicotine dependence
CPT/HCPCS: 36415; 71046; 80048; 80061; 82306; 84450; 84460; 87633; 99212

== ENCOUNTER → 2025-08-13 08:55 | Outpatient (BNV) | payer MEDICARE, SELFPAY | PROVIDERS: PCP Internal Medicine; Referring Provider Physician Assistant Medical; Visit Provider Radiology Diagnostic Radiology | DX: R05.1 Acute cough (principal) | CPT/HCPCS: 71046 ==

== ENCOUNTER 2025-08-20 13:42 | Outpatient (REF) | payer MEDICARE, SELFPAY | END 2025-08-20 13:43 | disposition home or self-care (01) | LOC: HO.HMGCLDS 13:42 | PROVIDERS: PCP Internal Medicine; Visit Provider Internal Medicine | DX: R53.83 Other fatigue (principal) | CPT/HCPCS: 36415; 84443 ==

== ENCOUNTER 2025-08-27 07:54 | Outpatient (AMB) | payer MEDICARE, SELFPAY ==
--- OUTSIDE RECORDS SUMMARY | 2025-08-27 07:56 | XMS_ITS | Patient Health Record ---
Author [facility] Address [address] [place] [address] Care Team Providers Care Molybdenum Steamer Operator Name Role Phone Torsten BHATTI, Debbi Caicedo Primary Care Provider Un available Dimitri Krishnamurthy Unavailable [phone] Allergies Allergen (clinical drug ingredient) Drug/Non Drug [...] Start Date Coverage End Date Medicare National [facility] [address] [place] [address] [id number] Janeth Xie Self - patient is the insured 9 [employer] Blue Shield [address] [place] [address] [id number] Janeth Xie Self - patient is the insured Medical (General) History Medical History History ICD Code Arthritis Back,Hip,and Knee pain chronic sinusitis Measles Mumps Chicken pox Vericose Veins Surgical History Surgery Date(Month/Year) deviated septum repair 1989 vein ablation 08/16-08/2015
--- OUTSIDE RECORDS SUMMARY | 2025-08-27 07:56 | XMS_ITS | Patient Health Record ---
Author Organization [facility] Address [address] [place] [address] Care Team Providers Care Women'S Swim Coach Name Role Phone Torsten BHATTI, Debbi Primary Care Provider Guillermo Wise Unavailable [phone] Reason For Referral No Information Medications Medication [...] Problem Status W/U Status Risk Notes Problem 929830860 Encounter for screening for malignant neoplasm of colon (Z12.11) Active confirmed Problem 555449104 History of adenomatous polyp of colon (Z86.010) Active confirmed Problem 265632491 Family history o f colon cancer (Z80.0) Active confirmed Problem 653591793 Long-term curren t use of high risk medication other than anticoagulant (Z79.899) Active confirmed Problem Diverticulosis of sigmoid colon (196558353) Diverticulosis of sigmoid colon (K57.30) Active confirmed Plan Of Treatment Pending Test Test Name Order Date Pathology 06/04/2021 Future Test Test Name Order Date COLONOSCOPY 07/31/2015 COLONOSCOPY 04/29/2021 Insurance Providers Payer Name Payer Address Payer Phone Subscriber Number Group Number Insured Name Patient Relationship to Insured Coverage Start Date Coverage End Date [place] OF [place] [address] [place] [address] [id number] LENORE ARGUETA Self - patient is the insured MEDEX ATTN CLAIMS [address] [place] [address] [phone] [id number] LENORE ARGUETA Self - patient is the insured Medical (General) History Medical History History ICD Code Colonoscopy 02/2010 and 2003- -small tubular adenoimas removed, diverticulosis, and small internal hemorrhoids Nasal polyps Denies ID,DM,CVA,Lung disease,renal dise ase Seasonal allergies Negative colonoscopy in 10/2015 Hyperlipidemia Surgical History Surgery Date(Month/Year) Lumpectomy for benign breast disease-quin ign Deviated septum repair 1982 Nasal polyps
[2025-08-27 07:58] VITALS: BP 120/76; PULSE 76; O2SAT 94; BMI 26.8
--- NOTE | 2025-08-27 07:58 | A.OFFPC_ITS ---
Vital Signs 08/27/25 07:58 Height 5 ft 1 in Weight 142 lb BMI 26.8 BP 120/76 Blood Pressure Location Lt brachial Position Sitting Pulse 76 Pulse Source Pulse Oximeter Pulse Oximetry (%) 94 Oxygen Delivery Method Room Air Intake Visit Reasons: 6m follow up Gold Wheel Blocker And Polisher Required: No Accompanied by: Self / Same As Patient Allergies ciprofloxacin (Cipro) Allergy (Unknown, Verified 08/27/25 08:14) anaphylaxis atorvastatin Adverse Reaction (Unknown, Verified 08/27/25 08:14) Muscle Pain simvastatin Adverse Reaction (Unknown, Verified 08/27/25 08:14) Muscle Pain Medication List - Last Reconciled 08/27/25 by Debbi Sarmiento MD calcium carb,lactat-vitamin D3 200 mg-6.25 mcg (250 unit) 1 tab PO DAILY fluticasone propionate 50 mcg/actuation (Flonase Allergy Relief) 1 spray intranasal DAILY magnesium 250 mg PO DAILY multivitamin 1 tab PO DAILY rosuvastatin 5 mg PO DAILY Tobacco use date assessed: 08/27/25 Fall risk assessment: No Falls in past year Last assessed Fall Risk: 08/27/25 Dental Screening Dental Screen Date: 08/27/25 Did you have a dental visit in the last 12 months?: Yes Did you have a dental problem in the last 6 months where you did not have access to dental care?: No Was dental information given to patient?: Patient has dentist HPI 6m follow up HPI Details 69-year-old lady here today for follow-u p on her lipids. Currently on rosuvastatin 5 mg taken daily. Has been compliant diet , but has not been able to do her regular 5 mi walk every day for the last month as her mother is here visiting from [place]. Latest fasting labs showed improvement in LDL cholesterol which is lower than last check, the rest of her labs which includes her other lipid panel results, electrolytes, renal function TSH, and vitamin-D level and fasting glucose are all within normal limits as well. Complains of right lower back pain nonradiating which has been present now for the last several days, denies any accompanying urinary incontinence, no weakness, no numbness or tingling going down extremities. Gets better with mov ement. Also has been experiencing intermittent episodes of nocturnal leg cramps mainly in right lower extremity. Has just started taking magnesium oxide tablets, but too early to tell whether it is working. Complains of having difficulty with weight loss. Has just recently started following a Mediterranean diet. Previously was of strict vegetarian [facility] Medical History (Updated 08/27/25 @ 08:36 by Debbi Sarmiento MD) Nocturnal leg cramps Osteopenia of left femoral neck Cataract Positional lightheadedness Seasonal allergies Menopause Dyslipidemia Recurrent cold sores Surgical History Hx of colonoscopy Status post laser ablation of incompetent vein Status post right breast lumpectomy S/P correction of deviated nasal septum Family History Father Coronary artery disease Hypertension Mother Dyslipidemia Asthma Maternal Uncle Colon cancer Maternal Grandmother Diabetes mellitus Daughter Mental health disorder Paternal Aunt History of breast cancer Paternal Grandmother History of breast cancer Sister History of breast cancer Social History Housing: House Alcohol intake: current Alcohol intake frequency: a few times a month Patient Tobacco Use Status: Former Tobacco user e-Cigarette/Vaping Use: Never Used service: No Current occupational status: retired Cognitive needs: No Hearing needs: No Vision needs: No Female Reproductive History Menstrual Age of Menarche: 10 Questionnaire PHQ-9 Over the last 2 weeks, how often have you been bothered by any of the following problems? 1. Little interest or pleasure in doing things: not at all 2. Feeling down, depressed, or hopeless: not at all 3. Trouble falling or staying asleep, or sleeping too much: several days 4. Feeling tired or having little energy: several days 5. Poor appetite or overeating: several days 6. Feeling bad about yourself - or that you are a failure or have let yourself or your family down: not at all 7. Trouble concentrating on things, such as reading the newspaper or watching television: not at all 8. Moving or speaking so slowly that other people could have noticed. Or the opposite - being so fidgety or restless that you have been moving around a lot more than usual: not at all 9. Thoughts that you would be better off or of hurting yourself in some way: not at all Total score: 3 Depression Screening Interpretation: Negative Depression Screening Done: Yes Source: Developed by Drs. Guillermo Hair, Valorie Lazcano, Bandar Guerra and colleagues, with an educational niat from [employer]. Thrive Questionnaire Date Thrive assessed: 02/26/25 I am a: Patient What is your living situation today?: I have a steady place to live Within the past 12 months, did the food you bought not last and you didn't have the money to get more?: Never true Within the past 12 months, did you worry whether your food would run out before you got money to buy more?: Never true Do you have trouble paying for medicines?: No Do you have trouble getting transportation to medical appointments?: No Do you have trouble paying your heating and electricity bill?: No Do you have trouble taking care of your child, family member or friend?: No Do you have trouble with day-to-day activities such as bathing, preparing meals, shopping, managing finances, etc.?: No Are you currently unemployed and looking for a job?: No Are you interested in more education?: No Please select the resources that you would like help with: None Currently or been in a relationship where the following occur: No concerns reported THRIVE Score: 0 AUDIT C Alcohol Use Questionnaire (AUDIT-C) 1. How often do you have a drink containing alcohol?: 2-4 times a month 2. How many drinks containing alcohol do you have on a typical day when you are drinking?: 1 or 2 3. How often do you have six or more drinks on one occasion?: Never Total Score: 2 Score Reviewed/Action Taken: Yes MELIA-7 AMB Questionnaire MELIA-7 Date MELIA - 7 assessed: 08/27/25 Feeling nervous, anxious, or on edge: 0 = Not at all Not being able to stop or control worryin = Not at all Worrying too much about different things: 1 = Several days Trouble relaxin = Not at all Being so restless that it is hard to sit still: 0 = Not at all Becoming easily annoyed or irritable: 0 = Not at all Feeling afraid as if something awful might happen: 0 = Not at all Total MELIA-7 score (0-4 normal; 5-9 mild; 10-14 moderate; 15-21 severe): 1 Source: Developed by Drs. Guillermo Hair, Valorie Lazcano, Bandar Guerra and colleagues, with an educational nita from [employer]. MELIA-7 Assessment Billing MELIA-7 Assessment Tool: MELIA-7 Assessment 59642 Review of Systems Const All systems reviewed & are unremarkable except as noted in HPI and below Physical exam (Primary Care) Vital Signs: Last Vital Signs Pulse 76 08/27/25 07:58 BP 120/76 08/27/25 07:58 Pulse Ox 94 08/27/25 07:58 Oxygen Delivery Method Room Air 08/27/25 07:58 BMI result Body Mass Index 26.8 Tobacco/Smoking Status: Tobacco use Status Tobacco use date assessed 08/27/25 08/27/25 08:00 Patient Tobacco Use Status Former Tobacco user 08/27/25 08:00 e-Cigarette/Vaping Use Never Used 08/27/25 08:00 PHQ-9: PHQ-9 Score PHQ-9: Total score 3 08/27/25 08:06 Depression Screening Interpretation: Negative Thrive Assessment: Date of Thrive Assessment Date Thrive assessed 02/26/25 08/27/25 08:00 Currently or been in a relationship where the following occur: No concerns reported Const Other: Alert oriented x3, no acute distress noted ambulatory with normal gait Orientation/consciousness: patient oriented x3 HENMT Mouth: moist mucous membranes Eyes General: appearance normal, both eyes and all related structures Neck Neck: Yes full ROM, Yes no lymphadenopathy and Yes supple Resp Auscultation: clear to auscultation bilaterally Cardio Other: S1-S2 present regular rate and rhythm General: Yes no CVA tenderness Back/Spine/Pelvis Back: no CVA tenderness and No back tenderness Neuro General: patient oriented x3, gait normal, moves all extremities, Normal light touch and pain sensation, no focal motor deficits and CN's II-XI intact bilaterally Extrem Other: Nocturnal leg cramps General: Yes full ROM, Yes no joint enlargement, Yes no clubbing, cyanosis or edema, Yes no pedal edema and Yes normal gait Coding Level of Care Code Est Pt Level 4 (24560) Complex EM visit Add On G2211 Diagnoses Environmental allergies Z91.09 Dyslipidemia E78.5 Nocturnal leg cramps G47.62 Acute right-sided low back pain without sciatica M54.50 Chronicity: acute Back pain laterality: right Sciatica presence: without sciatica Additional Codes MELIA-7 Assessment Billing - MELIA-7 Assessment Tool: MELIA-7 Assessment 42005 ([id number]) Assessment & Plan Assessment & Plan (1) Environmental allergies: Code(s): Z91.09 - Other allergy status, other than to drugs and biological substances Category: Medical Plan: Patient gets allergy shots at Dr. Solano's office, has been doing the so for years but still getting a lot of rhinitis symptoms. Advised to get a 2nd opinion and see an intervention manager. Patient states that she will think about it and ask whether the new ENT coming in to [place] is also doing allergy treatments. (2) Dyslipidemia: Code(s): E78.5 - Hyperlipidemia, unspecified Category: Medical Plan: Fasting lipids have improved, will continue on rosuvastatin 5 mg and advised to take it every day. Reinforced importance of following a low-cholesterol diet and getting regular exercise. Repeat another fasting lipid panel in January 2026 before her next appointment (3) Nocturnal leg cramps: Code(s): G47.62 - Sleep related leg cramps Category: Medical Plan: Advised to try taking magnesium glycinate [id number] 100-200 mg capsules once a day as needed. (4) Lumbago: Code(s): M54.50 - Low back pain, unspecified Qualifiers: Chronicity: acute Back pain laterality: right Sciatica presence: without sciatica Qualified Code(s): M54.50 - Low back pain, unspecified Plan: Advised to try doing other forms of exercise that includes stretching and moving other body parts, instead of just walking for 5 miles every day. May take Tylenol arthritis as needed for pain relief Orders: Orders Aspartate Amino Transferase 02/02/26 E78.5 - Hyperlipidemia, unspecified, M85.852 - Other specified disorders of bone density and structure, left thigh, Z78.0 - Asymptomatic menopausal state, Z91.09 - Other allergy status, other than to drugs and biological substances Vitamin D 25-OH Total 02/02/26 E78.5 - Hyperlipidemia, unspecified, M85.852 - Other specified disorders of bone density and structure, left thigh, Z78.0 - Asymptomatic menopausal state, Z91.09 - Other allergy status, other than to drugs and biological substances Lipid Panel 02/02/26 E78.5 - Hyperlipidemia, unspecified, M85.852 - Other specified disorders of bone density and structure, left thigh, Z78.0 - Asymptomatic menopausal state, Z91.09 - Other allergy status, other than to drugs and biological substances Alanine Aminotransferase 02/02/26 E78.5 - Hyperlipidemia, unspecified, M85.852 - Other specified disorders of bone density and structure, left thigh, Z78.0 - Asymptomatic menopausal state, Z91.09 - Other allergy status, other than to drugs and biological substances Medications: Refilled rosuvastatin 5 mg PO DAILY 90 tabs 4RF
== END 2025-08-27 11:33 | disposition home or self-care (01) ==
LOC: HO.HMCC 07:55
PROVIDERS: PCP Internal Medicine; Visit Provider Internal Medicine
DX: Z91.09 Other allergy status, other than to drugs and biological substances (principal); E78.5 Hyperlipidemia, unspecified; G47.62 Sleep related leg cramps; M54.50 Low back pain, unspecified

== ENCOUNTER → 2025-08-27 07:54 | Outpatient (BNVA) | payer MEDICARE, SELFPAY | PROVIDERS: PCP Internal Medicine; Visit Provider Internal Medicine | DX: Z91.09 Other allergy status, other than to drugs and biological substances (principal); E78.5 Hyperlipidemia, unspecified; G47.62 Sleep related leg cramps; M54.50 Low back pain, unspecified; Z87.891 Personal history of nicotine dependence | CPT/HCPCS: 96127; 99212 ==

== ENCOUNTER 2025-09-03 11:52 | Outpatient (AMB) | payer MEDICARE, SELFPAY ==
--- OUTSIDE RECORDS SUMMARY | 2025-09-03 14:24 | XMS_ITS | Patient Health Record ---
[facility] Address [address] [place] [address] Care Team Providers Care Residential Installer Name Role Phone Torsten BHATTI, Debbi Caicedo Primary Care Provider Un available Dimitri Gonzalez Unavailable [phone] Allergies Allergen (clinical drug ingredient) Drug/Non Drug [...] Start Date Coverage End Date Medicare National [facility] [address] [place] [address] [id number] Janeth Xie Self - patient is the insured 9 [employer] [address] [place] [address] [phone] [id number] Janeth Xie Self - patient is the insured Medical (General) History Medical History History ICD Code Arthritis Back,Hip,and Knee pain chronic sinusitis Measles Mumps Chicken pox Vericose Veins Surgical History Surgery Date(Month/Year) deviated septum repair 1989 vein ablation 08/16-08/2015
--- OUTSIDE RECORDS SUMMARY | 2025-09-03 14:24 | XMS_ITS | Patient Health Record ---
Author Organization [facility] Address [address] [place] [address] Care Team Providers Care Yoga Teacher Name Role Phone Torsten BHATTI, Debbi Primary Care Provider Guillermo Wise Unavailable [phone] Reason For Referral No Information Medications Medication [...] Problem Status W/U Status Risk Notes Problem 180351366 Encounter for screening for malignant neoplasm of colon (Z12.11) Active confirmed Problem 442444675 History of adenomatous polyp of colon (Z86.010) Active confirmed Problem 420125609 Family history o f colon cancer (Z80.0) Active confirmed Problem 022756562 Long-term curren t use of high risk medication other than anticoagulant (Z79.899) Active confirmed Problem Diverticulosis of sigmoid colon (868419298) Diverticulosis of sigmoid colon (K57.30) Active confirmed Plan Of Treatment Pending Test Test Name Order Date Pathology 06/04/2021 Future Test Test Name Order Date COLONOSCOPY 07/31/2015 COLONOSCOPY 04/29/2021 Insurance Providers Payer Name Payer Address Payer Phone Subscriber Number Group Number Insured Name Patient Relationship to Insured Coverage Start Date Coverage End Date MEDICARE OF [place] [address] [place] [address] [id number] LENORE ARGUETA Self - patient is the insured [employer] ATT[employer] CLAIMS [address] [place] [address] [id number] LENORE ARGUETA Self - patient is the insured Medical (General) History Medical History History ICD Code Colonoscopy 02/2010 and 2003- -small tubular adenoimas removed, diverticulosis, and small internal hemorrhoids Nasal polyps Denies [place],DM,CVA,Lung disease,renal dise ase Seasonal allergies Negative colonoscopy in 10/2015 Hyperlipidemia Surgical History Surgery Date(Month/Year) Lumpectomy for benign breast disease-quin ign Deviated septum repair 1982 Nasal polyps
== END 2025-09-03 11:54 | disposition home or self-care (01) ==
LOC: HO.HMGAL 11:52
PROVIDERS: PCP Internal Medicine; Visit Provider Registered Nurse Emergency
DX: J30.89 Other allergic rhinitis (principal)
CPT/HCPCS: 95117; 95165

== ENCOUNTER 2025-09-06 13:25 | Outpatient (REF) | payer MEDICARE, SELFPAY ==
--- NOTE | ~2025-09-06 | XR_ITS ---
EXAMINATION: XR SINUSES CLINICAL INFORMATION: NASAL POLYPS, LEFT SIDE. COMPARISON: May 27, 2021 TECHNIQUE: 3 views of the sinuses were obtained. FINDINGS: The frontal sinuses are diminutive in size. Other paranasal sinuses are clear. Mastoid air cells appear clear. XR/XR sinus min 3V IMPRESSION: Unremarkable examination. Electronically signed by: Miller Martin MD 09/06/2025 02:01 PM EDT RP
--- OUTSIDE RECORDS SUMMARY | 2025-09-06 13:29 | XMS_ITS | Patient Health Record ---
Author Organization [facility] Address [address] [place] [address] Care Team Providers Care Field Advisor Name Role Phone Torsten BHATTI, Debbi Primary Care Provider Guillermo Wise Unavailable [phone] Reason For Referral No Information Medications Medication SIG (Take, Route, Frequency, Duration) Notes Start Date End Date Status Krill Oil 1000 MG as directed Orally Active ZyrTEC Allergy 10 MG 1 tablet Orally Once a day; Duration: 30 day(s) Active Rosuvastatin Calcium 5 MG TAKE ONE TABLETS BY MOUTH DAILY 5 DAYS A WEEK AND TAKE TWO TABLETS TWICE A WEEK Oral; Duration: 88 Active Iron 325 (65 Fe) MG 1 tablet Orally Because she donates platelets Active Flonase Active Immunizations Vaccine Route Administration Date Status Comme nts Influenza Unknown 07/30/2020 Administered Problems Problem Type SNOMED Code ICD Code Onset Dates Problem Status W/U Status Risk Notes Problem Screening for malignant neoplasm of colon (888974875) Encounter for screening for malignant neoplasm of colon (Z12.11) Active confirmed Problem History of adenomatous polyp of colon (084083259) History of adenomatous polyp of colon (Z86.010) Active confirmed Problem Family History of Cancer of Colon (Situation) (620120640) Family history of colon cancer (Z80.0) Active confirmed Problem Long-term current use of drug therapy (094264260) Long-term current use of high risk medication other than anticoagulant (Z79.899) Active confirmed Problem Diverticulosis of sigmoid colon (162751681) Diverticulosis of sigmoid colon (K57.30) Active confirmed Plan Of Treatment Pending Test Test Name Order Date Pathology 06/04/2021 Future Test Test Name Order Date COLONOSCOPY 07/31/2015 COLONOSCOPY 04/29/2021 Insurance Providers Payer Name Payer Address Payer Phone Subscriber Number Group Number Insured Name Patient Relationship to Insured Coverage Start Date Coverage End Date MEDICARE OF [place] [address] [place] [address] [id number] LENORE ARGUETA Self - patient is the insured MED[employer] ATT[employer] CLAIMS [address] [place] [address] [id number] LENORE ARGUETA Self - patient is the insured Medical (General) History Medical History History ICD Code Colonoscopy 02/2010 and 2004- -small tubular adenoimas removed, diverticulosis, and small internal hemorrhoids Nasal polyps Denies [place],DM,CVA,Lung disease,renal dise ase Seasonal allergies Negative colonoscopy in 10/2015 Hyperlipidemia Surgical History Surgery Date(Month/Year) Lumpectomy for benign breast disease-quin ign Deviated septum repair 1982 Nasal polyps
--- OUTSIDE RECORDS SUMMARY | 2025-09-06 13:29 | XMS_ITS | Patient Health Record ---
[facility] Address [address] [place] [address] Care Team Providers Care Software Licensing Specialist Name Role Phone Torsten BHATTI, Debbi Caicedo Primary Care Provider Un available Dimitri Gonzalez Unavailable [phone] Allergies Allergen (clinical drug ingredient) Drug/Non Drug [...] Start Date Coverage End Date Medicare National [facility] [address] [place] [address] [id number] Janeth Xie Self - patient is the insured 9 [employer] [address] [place] [address] [id number] Janeth Xie Self - patient is the insured Medical (General) History Medical History History ICD Code Arthritis Back,Hip,and Knee pain chronic sinusitis Measles Mumps Chicken pox Vericose Veins Surgical History Surgery Date(Month/Year) deviated septum repair 1989 vein ablation 08/16-08/2015
== END 2025-09-06 13:26 | disposition home or self-care (01) ==
LOC: HO.HMGCX 13:25
PROVIDERS: PCP Internal Medicine; Visit Provider Allergy & Immunology
DX: J33.0 Polyp of nasal cavity (principal)
CPT/HCPCS: 70220

== ENCOUNTER → 2025-09-06 13:35 | Outpatient (BNV) | payer MEDICARE, SELFPAY | PROVIDERS: PCP Internal Medicine; Visit Provider Radiology Diagnostic Radiology | DX: J33.9 Nasal polyp, unspecified (principal) | CPT/HCPCS: 70220 ==